=== PATIENT | male | born 1955 | race Caucasian/White ===

== ENCOUNTER 2019-08-06 14:02 | Inpatient (IN) ==
[2019-08-06 14:53] LABS: BASO# 0.01 X1000 (0.0-0.2); BASO% 0.1 % (0.0-0.8); EOS# 0.06 X1000 (0.0-0.7); EOS% 0.4 % (0.0-10.0); HEMATOCRIT 32.9 % (42.0-52.0); HEMOGLOBIN 11.9 g/dL (14.0-18.0); IMM GRAN# 0.08 X1000 (0.0-0.04); IMM GRAN% 0.5 % (0.0-0.5); LYMPH# 1.21 X1000 (1.2-3.4); LYMPH% 8.3 % (20.5-51.1); MCH 31.6 PG (27-31); MCHC 36.2 g/dL (33-37); MCV 87.3 FL (81-99); MONO# 0.67 X1000 (0.11-0.59); MONO% 4.6 % (1.7-9.3); MPV 9.6 FL (7.4-10.4); NEUT# 12.56 X1000 (1.4-6.5); NEUT% 86.1 % (42.2-75.2); PLT 248 X1000 (130-400); RBC 3.77 XMIL (4.7-6.1); RDW 13.4 % (11.5-14.5); WBC 14.59 X1000 (4.8-10.8)
[2019-08-06 15:08] LABS: AGAP 11; ALKALINE PHOSPHATASE 126 U/L (32-122); BUN 5 mg/dL (8-22); CALCIUM 7.9 mg/dL (8.8-10.2); CHLORIDE 90 mmol/L (98-107); COSMO 252; CREATININE 0.6 mg/dL (0.7-1.2); ESTIMATED GFR > 60; GLUCOSE 90 mg/dL (70-104); GOT 20 U/L (10-34); GPT 19 U/L (10-44); SODIUM 127 mmol/L (136-145); TCO2 26 mmol/L (25-35); TOTAL PROTEIN 6.3 g/dL (6.3-8.3)
[2019-08-06] MEDS ORDERED: NS 1,000 ML IV ONE (15:22)
[2019-08-06] MEDS ORDERED: KLOR-CON PO ONE (15:24)
[2019-08-06] MEDS ORDERED: ROCEPHIN 1 GM in NS 50 ML IV ONE (16:58)
[2019-08-06] MEDS ORDERED: DILAUDID IV ONE (18:07)
[2019-08-06] MEDS ORDERED: ZOFRAN IV ONE (18:07)
--- NOTE | 2019-08-06 18:12 | Extremity Venous Study ---
EXAM: Venous U/S Right Arm - 08/06/2019 HISTORY: edema TECHNIQUE: Right upper extremity Doppler venous ultrasound COMPARISON: None. FINDINGS: The deep veins of the right upper extremity demonstrate flow, with compressibility and augmentation. There are no filling defects identified. There is apparent subcutaneous edema noted. IMPRESSION: No evidence of right upper extremity deep venous thrombosis. Electronically signed by Eduar Salazar 08/06/2019 6:10 PM
--- NOTE | 2019-08-06 18:17 | PROVIDER DOCUMENTATION ---
This chart was entered by Sayra Parra Scribe, acting as scribe for Chuck Antoine MD. HPI-General Adult - General Chief Complaint: Edema Stated Complaint: ELBOW / LEG SWOLLEN / PAINFUL Time Seen by Provider: 08/06/19 14:17 Source: patient Allergies/Adverse Reactions: Patient Allergies Allergy/AdvReac Type Severity Reaction Status Date / Time No Known Allergies Allergy Verified 07/28/17 17:54 Home Medications: Home Medication List Medication Instructions Recorded Confirmed Last Taken Type Amlodipine Besylate 10 mg PO DAILY 07/28/17 01/29/18 Unknown History Clonidine HCl 0.1 mg PO DAILY 07/28/17 01/29/18 Unknown History Hydrocodone/Acetaminophen [[place] 1 each PO Q4-6H PRN PRN 07/28/17 01/29/18 01/28/18 21:00 History 10-325 Tablet] Indomethacin 25 mg PO DAILY 07/28/17 01/29/18 Unknown History Alprazolam [Xanax] 1 mg PO BID PRN PRN tablet 01/29/18 Unknown Rx Cyclobenzaprine [Flexeril] 10 mg PO QHS tablet 01/29/18 Unknown Rx - History of Present Illness -Gen Adult Nature of Presenting Problems: 64 y/o WM c/o swelling and pain to rt arm since yesterday. Pt denies any falls or injuries. Location of Pain/Injury: reports: upper extremity ( cellulitis and edema to rt arm) Pain Radiation: reports: no radiation Quality of Pain: reports: aching, burning, pressure Severity: reports: severe Onset/Duration: reports: 24 hours ago Timing: reports: still present, getting worse Context/Activities at Onset: reports: light activity Modifying Factors: improves with: movement, palpation Associated Symptoms: reports: denies symptoms Similar Symptoms Previously?: No Recently seen or treated by another doctor?: No - Sickle Cell Pain Related Context Sickle Cell Pain Location: denies: none, head, face, mouth, neck, chest, upper extremity, hand(s), abdomen, back, pelvis, genitalia, lower extremity, feet, upper body, lower body, generalized, other Review of Systems - Adult - REVIEW OF SYSTEMS - ADULT Constitutional: reports: no symptoms reported, see HPI Eyes: reports: no symptoms reported, see HPI Ears, Nose, Mouth & Throat: reports: no symptoms reported, see HPI Cardiovascular: reports: no symptoms reported, see HPI Respiratory: reports: no symptoms reported, see HPI Gastrointestinal: reports: no symptoms reported, see HPI Genitourinary: reports: no symptoms reported, see HPI Musculoskeletal: reports: no symptoms reported, see HPI Integumentary: reports: see HPI, other (redness and swelling to rt arm) Neurological: reports: no symptoms reported, see HPI Psychiatric: reports: no symptoms reported, see HPI Endocrine: reports: no symptoms reported, see HPI Hematologic/Lymphatic: reports: no symptoms reported, see HPI Allergic/Immunologic: reports: no symptoms reported, see HPI All Other Systems: Reviewed and Negative Past History - Adult - PAST MEDICAL HISTORY-ADULT Review of Records: reports: Old Records Reviewed, Nursing Assessment Review, Medications Reviewed, Social history reviewed & non-contributory. Major Childhood Illnesses: reports: denies history Cardiovascular: reports: HTN Respiratory: reports: COPD Gastrointestinal: reports: denies history Genitourinary: reports: denies history Musculoskeletal: reports: chronic pain (chronic low back pain), neck/back injury , other (DDD) Neurological: reports: denies history Psychiatric: reports: anxiety, other (panic attacks) Endocrine/Immune: reports: denies history Other Conditions: reports: MRSA - PRIOR SURGERIES/PROCEDURES Surgical/Procedure History: reports: hernia repair - IMMUNIZATION STATUS Childhood Immunizations: See Nurse Assessment Flu Vaccine: See Nurse Assessment - FAMILY HISTORY Family History: reviewed, not pertinent - SOCIAL HISTORY Smoking: cigarettes, less than 1 pack/day Provider spent 3-5 mins advising pt. on dangers of tobacco.: Discussed manners to quit use, and f/u contacts for add'l counseling. Substance Use: denies Alcohol Use Frequency: never Living Situation: family Physical Exam-General - PHYSICAL EXAM-ADULT Initial Vital Signs Reviewed: Yes - CONSTITUTIONAL General Appearance: alert, mild distress - EYES Eyes: PERRL/EOMI, pink conjunctivae - HEAD, EARS, NOSE, MOUTH & THROAT HENMT: moist mucous membranes - NECK Neck: non-tender, full range of motion, supple, normal inspection - RESPIRATORY Respiratory: chest non-tender, lungs clear, normal breath sounds - CARDIOVASCULAR Cardiovascular: normal peripheral pulses, regular rate, rhythm - CHEST (BREASTS) Chest/Breast: deferred - GASTROINTESTINAL (ABDOMEN) Abdominal Exam: normal bowel sounds, non tender, soft - GENITOURINARY Male Genitalia: deferred Rectal Exam: deferred Hemoccult Exam: deferred - LYMPHATIC Lymphatic: no adenopathy - MUSCULOSKELETAL Back Exam: normal inspection, no CVA tenderness, no vertebral tenderness Extremity: normal capillary refill, pelvis stable, erythema (RUE), swelling (RUE and RLE), tenderness (RUE) - SKIN Integumentary: normal color, normal turgor, warm/dry, erythema (RUE), swelling (RUE and RLE), tenderness (RUE) - NEUROLOGIC Neurologic: grossly normal - PSYCHIATRIC Psych/Mental Status: normal mood/affect, normal thought content, normal thought process, oriented x 3 Progress - PLAN OF CARE/RESULTS Progress/Plan/Lab Results: Vital Signs - 8 hr 08/06/19 14:07 Temperature 98.2 F Pulse Rate 98 H Respiratory Rate 20 Blood Pressure 126/76 O2 Sat by Pulse Oximetry 100 Orders Category Date Time Status CBC WITH ELECTRONIC DIFF [HEME] Stat Lab 08/06/19 14:20 Uncollected COMPREHENSIVE METABOLIC PANEL [CHEM] Stat Lab 08/06/19 14:20 Uncollected D-DIMER [COAG] Stat Lab 08/06/19 14:21 Ordered URIC ACID [CHEM] Stat Lab 08/06/19 14:20 Ordered Result Diagrams: 08/06/19 14:28 08/06/19 14:28 - REASSESSMENT Reassessment #1 Time Reassessed: 16:12 (pt has calmed and is resting in bed) Status: improving Reassessment #2 Time Reassessed: 17:57 Status: unchanged - CONSULTS/PCP/HOSPITALIST Notification #1 *Consult/PCP/Hospitalist*: hospiatlist dr keller Time Discussed: 17:57 Consult Disposition: Admit Departure - Departure Date of Disposition Decision: 08/06/19 Time of Disposition Decision: 18:09 DIAGNOSIS: Tobacco use disorder, Hyponatremia, Hypokalemia Cellulitis Qualifiers: Site of cellulitis: extremity Site of cellulitis of extremity: upper extremity Laterality: right Qualified Code(s): L03.113 - Cellulitis of right upper limb Disposition: ADMITTED INPATIENT 09 Certified Medical Emergency: Emergent Condition: Fair Referrals and Follow-Ups: Fabio Harden MD [Primary Care Provider] - - Critical Care Note This patient required my direct & personal management of CC.: Yes Total Time (mins): 32 Critical Care Statement: This patient required my direct personal management to treat or rule out processes, the absence of which, could potentiallly result in sudden, clinically significant life or limb threatening deterioration. Attestation - Physician/ ROSEY Attestation Patient care was provided by Advanced Practice Provider:: No The physician spent face to face time with patient:: Yes Advanced Practice Provider documentation review:: Supervising physician onsite and consulted in the evaluation and care of this patient. The physician did have a face to face encounter with the patient. This chart was documented by the indicated scribe, (Sayra Parra Scribe) and accurately reflects the services I performed and decisions made by me, Chuck Antoine MD, as attested by the provider's signature.
[2019-08-06] MEDS ORDERED: ZOFRAN IV PRN (18:31)
[2019-08-06] MEDS ORDERED: TYLENOL PO PRN (18:31)
[2019-08-06] MEDS ORDERED: NS 1,000 ML IV SCH (18:45)
[2019-08-06 19:16] LABS: BILIRUBIN URINE NEGATIVE (NEGATIVE); BLOOD URINE NEGATIVE (NEGATIVE); CLARITY CLEAR (CLEAR); COLOR YELLOW; GLUCOSE URINE NEGATIVE (NEGATIVE); KETONE URINE NEGATIVE (NEGATIVE); LEUKOCYTES URINE NEGATIVE (NEGATIVE); NITRITE URINE NEGATIVE (NEGATIVE); PROTEIN URINE NEGATIVE (NEGATIVE); SP GRAVITY URINE 1.005; UROBILINOGEN URINE 4 mg/dL
[2019-08-06 19:22] LABS: URINE BACTERIA NEGATIVE /HFP; URINE EPITHELIAL CELLS <10 /HPF (<10); URINE RBC <10 /HPF (<10); URINE SOURCE CLEAN CATCH; URINE WBC <10 /HPF (<10)
[2019-08-06] MEDS: ROCEPHIN 1 GM in NS 50 ML IV SCH (20:53)
[2019-08-06] MEDS: DIFLUCAN PO SCH (21:27)
[2019-08-06] MEDS: NORCO-10 PO PRN (23:26)
--- NOTE | 2019-08-07 04:43 | HISTORY AND PHYSICAL ---
CHIEF COMPLAINT: Right arm pain and swelling. HISTORY OF PRESENT ILLNESS: The patient is a 64-year-old male who presented to the emergency department complaining that his right arm started swelling yesterday and has continued to worsen. Today, it hurts, it is red, tender to palpation. Denies any injury. Denies any previous skin infections. Does have a yeast infection on his right foot. ALLERGIES: No known drug allergies. MEDICATIONS: Amlodipine, hydrocodone, Xanax, Flexeril, although do not have a complete accurate list. PAST MEDICAL HISTORY: Hypertension, COPD, chronic back and neck pain, chronic panic attacks, history of MRSA. REVIEW OF SYSTEMS: As noted above. Patient denies any fevers, chills, cough, congestion. Denies headaches, blurred vision, change in vision. Denies any focalized numbness, tingling, and weakness in his extremities. Denies dysuria, frequency. Notes that his right arm has been swollen, tender, and red. Denies any history of gout or injury to the arm. FAMILY HISTORY: Noncontributory. SOCIAL HISTORY: Patient smokes a pack a day. Denies alcohol. Denies any illicit substance use. PHYSICAL EXAMINATION: VITAL SIGNS: Reviewed. Temperature 98 degrees, pulse 98, respiratory 20, BP 126/76. Saturating 100% on room air. GENERAL: Patient is awake, alert. He is in no respiratory distress. HEENT: Normocephalic. NECK: Supple. CARDIOVASCULAR: Regular rate. No murmurs. CHEST: Clear, nonlabored. ABDOMEN: Soft, nondistended, nontender. EXTREMITIES: Moves all extremities. NEUROLOGIC: No focal neurological changes. He is awake, alert, oriented x3. SKIN: His right arm is red, swollen, tender. It is edematous from his dorsum of his hand to his elbow. LABS: White count 14.9. Sodium 127, potassium 3.0. ASSESSMENT: 1. Cellulitis right upper extremity. 2. Hypokalemia. 3. Hyponatremia. 4. Chronic tobacco abuse. 5. Leukocytosis. PLAN: We will admit patient to the hospital, antibiotics, pain control. We will follow his sodium and potassium. He has been given potassium in the ER. Further orders as needed. cc: Chuck Raya MD
[2019-08-07 06:41] LABS: HEMATOCRIT 30.3 % (42.0-52.0); HEMOGLOBIN 10.3 g/dL (14.0-18.0); MCH 30.4 PG (27-31); MCV 89.4 FL (81-99); MPV 9.4 FL (7.4-10.4); RBC 3.39 XMIL (4.7-6.1); RDW 13.7 % (11.5-14.5); WBC 10.24 X1000 (4.8-10.8)
[2019-08-07 06:52] LABS: AGAP 9; ALBUMIN 2.7 g/dL (3.5-5.0); ALKALINE PHOSPHATASE 131 U/L (32-122); BUN 5 mg/dL (8-22); CHLORIDE 99 mmol/L (98-107); COSMO 267; CREATININE 0.6 mg/dL (0.7-1.2); ESTIMATED GFR > 60; GLUCOSE 90 mg/dL (70-104); GOT 16 U/L (10-34); GPT 17 U/L (10-44); MAGNESIUM 1.8 mg/dL (1.5-2.7); SODIUM 135 mmol/L (136-145); TCO2 27 mmol/L (25-35); TOTAL PROTEIN 6.1 g/dL (6.3-8.3)
[2019-08-07] MEDS ORDERED: ZOFRAN IV PRN (07:37)
[2019-08-07] MEDS ORDERED: TYLENOL PO PRN (07:37)
[2019-08-07] MEDS ORDERED: LOVENOX SUBQ ONE (07:38)
[2019-08-07] MEDS ORDERED: VANCOMYCIN IV PER PHARMACY MISC SCH (07:45)
[2019-08-07] MEDS: NORCO-10 PO PRN ×2 (08:49→15:14)
[2019-08-07] MEDS: DIFLUCAN PO SCH (08:51)
[2019-08-07] MEDS ORDERED: VANCOMYCIN 2,150 MG in NS 500 ML IV ONE (09:00)
--- NOTE | 2019-08-07 09:52 | Diag Imaging Result Doc PS360 ---
CT ANGIOGRM PULMONARY ARTERIES - 08/07/2019 INDICATION: d dimer TECHNIQUE: Axial CT images were obtained after administering intravenous contrast. Coronal MIP images were generated. COMPARISON: None FINDINGS: There is no pulmonary embolism. There is significant plaque buildup leading to circumferential narrowing of the proximal origins of the left common carotid and left subclavian arteries. This leads to moderately severe stenosis of about 50% narrowing of both of these arteries. There is no adenopathy. Heart size is normal with no pericardial effusion. Upper abdominal images are normal. Bony structures are intact. Moderate degeneration throughout the thoracic spine. IMPRESSION: No acute abnormality. Narrowing of the origins of the left common carotid and subclavian arteries. Please note that this can give rise to subclavian steal syndrome. This exam was performed using automated exposure control, adjustment of mA or kV according to patient size, and/or use of iterative reconstruction technique Electronically signed by Mike Anglni 08/07/2019 9:50 AM
--- NOTE | 2019-08-07 11:13 | Extremity Venous Study ---
Venous U/S Bilateral Legs - 08/07/2019 INDICATION: d dimer TECHNIQUE: COMPARISON: None FINDINGS: The veins of the lower extremities are fully compressible. There is normal color and pulse wave Doppler signal. There is mild inguinal lymphadenopathy bilaterally. IMPRESSION: Negative for venous thrombosis. Mild groin lymphadenopathy bilaterally, nonspecific. Electronically signed by Mike Anglin 08/07/2019 11:11 AM
[2019-08-07] MEDS: ROCEPHIN 1 GM in NS 50 ML IV SCH (19:29)
[2019-08-07] MEDS: VANCOMYCIN 1,850 MG in NS 500 ML IV SCH (20:45)
--- NOTE | 2019-08-08 00:48 | PROGRESS NOTE ---
DATE: 08/07/2019 SUBJECTIVE: The patient notes that his arm is still red, swollen and tender. He does not think it looks any worse, but it might not be better, either. Denies any fevers or chills. OBJECTIVE: Temperature 97.8 degrees, pulse 71, respiratory 18, BP 103/53.General: The patient is awake. He is pleasant. He is in no distress. HEENT: Normocephalic. Neck supple. Cardiovascular: Regular rate. Chest clear, nonlabored. Abdomen soft, nondistended, nontender. Extremities: Moves all extremities. Skin: His right upper extremity is still erythematous and swollen from the dorsum of his hand to his elbow. He does have full motion and good sensation of all 5 digits. ASSESSMENT: 1. Cellulitis, right upper extremity. 2. Hypokalemia. 3. Hypomagnesemia. 4. Chronic tobacco abuse. PLAN: We are going to continue the patient in the hospital. Antibiotics. We will check ultrasound and we will follow. cc: Chuck Raya MD
[2019-08-08] MEDS ORDERED: SOLU-MEDROL IV ONE (09:34)
[2019-08-08] MEDS: DIFLUCAN PO SCH (09:47)
[2019-08-08] MEDS: VANCOMYCIN 1,850 MG in NS 500 ML IV SCH ×2 (09:48→21:11)
[2019-08-08] MEDS: NICODERM PATCH TD SCH (10:17)
[2019-08-08 10:32] LABS: AGAP 10; BUN 3 mg/dL (8-22); CALCIUM 7.9 mg/dL (8.8-10.2); CHLORIDE 97 mmol/L (98-107); COSMO 265; CREATININE 0.6 mg/dL (0.7-1.2); ESTIMATED GFR > 60; GLUCOSE 102 mg/dL (70-104); POTASSIUM 3.4 mmol/L (3.5-5.1); SODIUM 134 mmol/L (136-145); TCO2 27 mmol/L (25-35)
[2019-08-08] MEDS: NORCO-10 PO PRN ×2 (10:59→18:33)
[2019-08-08] MEDS ORDERED: KLOR-CON PO ONE (13:32)
--- NOTE | 2019-08-08 13:48 | PROGRESS NOTE ---
DATE: 08/08/2019 SUBJECTIVE: The patient complains of having some pain in the right upper extremity, but states that he has slept better last night and the pain was a lot better as compared to the previous days. OBJECTIVE: Vital Signs: Temperature 97.4 degrees, pulse 88 per minute, respiratory rate 12 per minute, blood pressure 120/62, pulse oximetry 100% on room air. General: Patient is alert and oriented x3. He does not appear to be in any acute distress. Cardiovascular System: First and second heart sounds are audible without murmurs or gallops. Respiratory System: No respiratory distress noted. Bilateral lung air entry is good without any rales or rhonchi. Gastrointestinal: Abdomen is soft and nondistended. Normal bowel sounds are present. Musculoskeletal System: Right upper extremity is significantly edematous and erythematous around the elbow area. Right forearm is also having erythema and edema along with tenderness, but the patient states that it is somewhat better as compared to previous days. DIAGNOSTIC DATA: No new labs have been done. His potassium levels were found to be 2.0 yesterday, however. ASSESSMENT: 1. Right upper extremity cellulitis. 2. Hypokalemia. PLAN: I am going to have a stat BMP to recheck his potassium levels today and replenish potassium as needed. He has been on broad-spectrum antibiotics including vancomycin and ceftriaxone, which will be continued. I am going to give him a single dose of methylprednisolone 80 mg IV as well to reduce the edema and increase comfort level. Further recommendation will be given as per hospital course. cc: Nabeel Cohn MD
[2019-08-08] MEDS: NS 1,000 ML IV SCH (14:46)
[2019-08-08] MEDS: ROCEPHIN 1 GM in NS 50 ML IV SCH (18:22)
[2019-08-09] MEDS: NORCO-10 PO PRN ×4 (00:24→20:50)
[2019-08-09 08:08] LABS: BASO# 0.02 X1000 (0.0-0.2); BASO% 0.1 % (0.0-0.8); EOS# 0.01 X1000 (0.0-0.7); HEMATOCRIT 31.1 % (42.0-52.0); HEMOGLOBIN 10.9 g/dL (14.0-18.0); IMM GRAN# 0.19 X1000 (0.0-0.04); IMM GRAN% 0.9 % (0.0-0.5); LYMPH# 1.35 X1000 (1.2-3.4); LYMPH% 6.3 % (20.5-51.1); MCH 31.2 PG (27-31); MCV 89.1 FL (81-99); MONO# 0.76 X1000 (0.11-0.59); MONO% 3.5 % (1.7-9.3); MPV 8.5 FL (7.4-10.4); NEUT# 19.12 X1000 (1.4-6.5); NEUT% 89.2 % (42.2-75.2); PLT 440 X1000 (130-400); RBC 3.49 XMIL (4.7-6.1); RDW 13.5 % (11.5-14.5); WBC 21.45 X1000 (4.8-10.8)
[2019-08-09 09:18] LABS: AGAP 16; BUN 4 mg/dL (8-22); CHLORIDE 97 mmol/L (98-107); COSMO 271; CREATININE 0.5 mg/dL (0.7-1.2); ESTIMATED GFR > 60; GLUCOSE 129 mg/dL (70-104); POTASSIUM 3.8 mmol/L (3.5-5.1); SODIUM 136 mmol/L (136-145); TCO2 23 mmol/L (25-35)
[2019-08-09] MEDS: DIFLUCAN PO SCH (09:42)
[2019-08-09] MEDS: VANCOMYCIN 1,850 MG in NS 500 ML IV SCH ×2 (09:42→20:51)
[2019-08-09] MEDS: NICODERM PATCH TD SCH (09:43)
[2019-08-09 09:44] LABS: ANISOCYTOSIS 1+; BANDS 1 % (0-1); LYMPHS 7 % (21-51); MONO 3 % (1-9); SEGS 89 % (42-75)
[2019-08-09] MEDS: NS 1,000 ML IV SCH (09:58)
--- NOTE | 2019-08-09 12:25 | PROGRESS NOTE ---
DATE: 08/09/2019 SUBJECTIVE: The patient denies having acute complaint this morning and feels much better as compared to yesterday. He states that the swelling and redness of his right palm has significantly improved. OBJECTIVE: Vital Signs: Temperature 98.3 degrees, pulse 85 per minute, respiratory rate 14 per minute, blood pressure 134/74, pulse oximetry 100% on room air. General: The patient is alert and oriented x3. He does not appear to be in any acute distress. Cardiovascular System: First and second heart sounds are audible without any murmur or gallops. Respiratory System: Bilateral lung air entry is good without any rales or rhonchi. Gastrointestinal System: Abdomen is soft and nondistended. Normal bowel sounds are present. Musculoskeletal System: Right upper extremity erythema along with skin induration and increased warmth are there, although they are significantly improved as compared to yesterday. The patient also reports improvement. Diagnostic Data: CBC shows WBC count of 21.45 with 89.2% neutrophils. In comparison, his WBC count was 10.24 yesterday. Basic metabolic panel is nondiagnostic. IMPRESSION: 1. Right upper extremity cellulitis with leukocytosis which could be secondary to methylprednisolone that was given to him yesterday. 2. Hypokalemia, that has improved. PLAN: We will continue to give him vancomycin along with ceftriaxone intravenously. We are also going to continue giving him IV fluid and monitor him clinically. Although his white blood cell count has increased, he is clinically feeling better and his right upper extremity swelling, erythema, and tenderness are down. Therefore, we are going to continue with the current therapy. I am going to repeat his labs in the morning tomorrow to monitor him. Further recommendations will be given as per outcome of these measures. cc: Nabeel Cohn MD
[2019-08-09] MEDS: ROCEPHIN 1 GM in NS 50 ML IV SCH (17:44)
[2019-08-10] MEDS: NORCO-10 PO PRN ×4 (02:37→22:12)
[2019-08-10] MEDS: NS 1,000 ML IV SCH ×2 (06:00→20:47)
[2019-08-10 07:20] LABS: BASO# 0.03 X1000 (0.0-0.2); BASO% 0.2 % (0.0-0.8); EOS# 0.11 X1000 (0.0-0.7); EOS% 0.8 % (0.0-10.0); HEMATOCRIT 33.9 % (42.0-52.0); HEMOGLOBIN 11.6 g/dL (14.0-18.0); IMM GRAN# 0.22 X1000 (0.0-0.04); IMM GRAN% 1.5 % (0.0-0.5); LYMPH# 1.84 X1000 (1.2-3.4); LYMPH% 12.9 % (20.5-51.1); MCH 30.9 PG (27-31); MCHC 34.2 g/dL (33-37); MCV 90.2 FL (81-99); MONO# 0.73 X1000 (0.11-0.59); MONO% 5.1 % (1.7-9.3); MPV 8.4 FL (7.4-10.4); NEUT# 11.35 X1000 (1.4-6.5); NEUT% 79.5 % (42.2-75.2); PLT 577 X1000 (130-400); RBC 3.76 XMIL (4.7-6.1); RDW 13.9 % (11.5-14.5); WBC 14.28 X1000 (4.8-10.8)
[2019-08-10 07:29] LABS: AGAP 12; BUN 4 mg/dL (8-22); CALCIUM 8.3 mg/dL (8.8-10.2); CHLORIDE 102 mmol/L (98-107); COSMO 275; CREATININE 0.6 mg/dL (0.7-1.2); ESTIMATED GFR > 60; GLUCOSE 102 mg/dL (70-104); MAGNESIUM 1.8 mg/dL (1.5-2.7); POTASSIUM 3.4 mmol/L (3.5-5.1); SODIUM 139 mmol/L (136-145); TCO2 25 mmol/L (25-35)
[2019-08-10] MEDS: VANCOMYCIN 1,850 MG in NS 500 ML IV SCH ×2 (09:01→20:47)
[2019-08-10] MEDS: NORVASC PO SCH (09:19)
[2019-08-10] MEDS: NICODERM PATCH TD SCH (09:20)
[2019-08-10] MEDS: DIFLUCAN PO SCH (09:20)
[2019-08-10] MEDS: ROCEPHIN 1 GM in NS 50 ML IV SCH (17:46)
[2019-08-11] MEDS: NORCO-10 PO PRN ×4 (04:12→22:29)
--- NOTE | 2019-08-11 08:04 | PROGRESS NOTE ---
DATE: 08/10/2019 SUBJECTIVE: Patient notes that overall he is feeling better. Still notes he is having some pain and swelling in his right upper extremity, but notes this is better than it was. PHYSICAL EXAM: Vital signs: Temperature 97.7 degrees, pulse 94, BP 171/62. General: Patient is awake. He is very pleasant. He is in no distress. HEENT: Normocephalic. Neck: Supple. Cardiovascular: Regular rate. Chest: Clear. Abdomen: Soft. Extremities: Moves all extremities. Skin: Right upper extremity has marked improvement in his swelling and warmth since admission. ASSESSMENT: 1. Right upper extremity cellulitis. 2. Leukocytosis. 3. Left lower extremity swelling of undetermined origin. 4. Hypokalemia. PLAN: Continue antibiotics. The patient did have an ultrasound of the lower extremities that was negative, but he has had significant swelling since that ultrasound. Certainly may need to consider repeating this. We will continue antibiotics, hopefully home over the next 1 or 2 days. cc: Chuck Raya MD
[2019-08-11] MEDS: NICODERM PATCH TD SCH (10:12)
[2019-08-11] MEDS: NORVASC PO SCH (10:12)
[2019-08-11] MEDS: DIFLUCAN PO SCH (10:12)
[2019-08-11] MEDS: VANCOMYCIN 1,850 MG in NS 500 ML IV SCH ×2 (10:13→21:16)
[2019-08-11] MEDS: NS 1,000 ML IV SCH ×2 (10:17→16:19)
--- NOTE | 2019-08-11 18:26 | PROGRESS NOTE ---
DATE: 08/11/2019 SUBJECTIVE: The patient is complaining of an altered sensation on left side of his face. Very odd affect. OBJECTIVE: Vital signs: Blood pressure 147/79, heart rate of 97, respiratory rate of 18, temp was 98.1 degrees. Cardiovascular: Regular rate and rhythm. Pulmonary: Bilateral breath sounds. Clear to auscultation. GI: Soft, nontender, nondistended. Bowel sounds are positive. Extremities: His right upper extremity is extremely swollen. He has peripheral edema that is pretty impressive and unexplained. He is on amlodipine. As far as I can tell he does not have congestive heart failure. Neurologic: Very odd affect. PROBLEM LIST: Cellulitis. We will continue empiric antibiotics. He is currently on vancomycin and Rocephin. He has had 1 culture positive for bacillus species that was not otherwise characterized. We will continue diuretics and follow. I am not really sure why he has such significant swelling unless it is possibly calcium channel gold. He has had no PE. We will get a wound care evaluation as well, start diuretics. cc: Chirag Colby MD
[2019-08-11] MEDS: ZOSYN 3.375 GM in NS 50 ML IV SCH (18:42)
[2019-08-11] MEDS: LASIX IV SCH (18:43)
[2019-08-11 21:57] LABS: UR AMPHETAMINES QUAL NONE DETECTED (NONE DETECT); UR BARBITUATES QUAL NONE DETECTED (NONE DETECT); UR BENZODIAZEPIN QUAL NONE DETECTED (NONE DETECT); UR CANNABINOIDS QUAL NONE DETECTED (NONE DETECT); UR COCAINE QUAL NONE DETECTED (NONE DETECT); UR METHADONE QUAL NONE DETECTED (NONE DETECT); UR METHAMPHETAMINE QUAL NONE DETECTED (NONE DETECT); UR OPIATES QUAL PRESUMPTIVE POSITIVE (NONE DETECT); UR OXYCODONE QUAL NONE DETECTED (NONE DETECT); UR PCP QUAL NONE DETECTED (NONE DETECT); UR PROPOXYPHENE QUAL NONE DETECTED (NONE DETECT); UR TCA QUAL NONE DETECTED (NONE DETECT)
[2019-08-12] MEDS: NORCO-10 PO PRN ×3 (02:41→12:16)
[2019-08-12] MEDS: ZOSYN 3.375 GM in NS 50 ML IV SCH ×4 (03:16→21:56)
[2019-08-12 07:37] LABS: BASO# 0.03 X1000 (0.0-0.2); BASO% 0.2 % (0.0-0.8); EOS# 0.07 X1000 (0.0-0.7); EOS% 0.5 % (0.0-10.0); HEMATOCRIT 30.9 % (42.0-52.0); HEMOGLOBIN 10.3 g/dL (14.0-18.0); IMM GRAN# 0.15 X1000 (0.0-0.04); LYMPH# 1.81 X1000 (1.2-3.4); LYMPH% 12.1 % (20.5-51.1); MCH 30.5 PG (27-31); MCHC 33.3 g/dL (33-37); MCV 91.4 FL (81-99); MONO# 0.69 X1000 (0.11-0.59); MONO% 4.6 % (1.7-9.3); MPV 8.2 FL (7.4-10.4); NEUT# 12.23 X1000 (1.4-6.5); NEUT% 81.6 % (42.2-75.2); PLT 656 X1000 (130-400); RBC 3.38 XMIL (4.7-6.1); RDW 13.9 % (11.5-14.5); WBC 14.98 X1000 (4.8-10.8)
[2019-08-12 08:05] LABS: AGAP 13; BUN 7 mg/dL (8-22); CALCIUM 8.1 mg/dL (8.8-10.2); CHLORIDE 99 mmol/L (98-107); COSMO 272; CREATININE 0.8 mg/dL (0.7-1.2); ESTIMATED GFR > 60; GLUCOSE 98 mg/dL (70-104); POTASSIUM 3.8 mmol/L (3.5-5.1); SODIUM 137 mmol/L (136-145); TCO2 25 mmol/L (25-35)
[2019-08-12] MEDS: DIFLUCAN PO SCH (08:21)
[2019-08-12] MEDS: NICODERM PATCH TD SCH (08:21)
[2019-08-12] MEDS: LASIX IV SCH (08:21)
--- NOTE | 2019-08-12 18:56 | PROGRESS NOTE ---
DATE: 08/12/2019 SUBJECTIVE: He still has pain and swelling in his extremity, which just seems whatever is going on is still not resolving unfortunately or maybe it is organizing into subcutaneous abscess. OBJECTIVE: Vital signs: Blood pressure is 139/65, heart rate 77, respiratory rate 18, temperature 97.9 degrees, 98% on room air. Cardiovascular: Regular rate and rhythm. Pulmonary: Bilateral breath sounds clear to auscultation. Gastrointestinal: Soft, nontender, nondistended. Bowel sounds are positive. Extremities: He has tight pitting edema with fluctuance over his elbow, almost possible effusion on the right side. He has a focal area about 3 cm circular with some mild fluctuance in his right lower extremity with associated very significant edema and erythema. PROBLEM LIST: Cellulitis of his right arm and right leg. He denies IV drug use. He has diffuse kind of excoriations so there may be just kind of a psychogenic component to pruritus. He is on vancomycin and Rocephin. His vancomycin is greater than 25. I am just going to stop and switch him to daptomycin. He is not on Rocephin. He is on Zosyn now and not much improved. I am going to CT his arm, rule out abscess or septic arthritis. I am going to get a surgical opinion because I am not entirely sure he may not need some drainage on the actual lower extremity lesion, and we will continue wound care, fluid management, IV fluids and follow closely. cc: Chirag Colby MD
[2019-08-12] MEDS: PERCOCET-10 PO PRN (20:28)
--- NOTE | 2019-08-12 21:58 | Diag Imaging Result Doc PS360 ---
EXAM: CT EXT UPPER RIGHT W/CONT 08/12/2019 HISTORY: cellulitis, r/ro abscess TECHNIQUE: CT of the right arm COMMENT: With intravenous contrast there is some edema in the subcutaneous fat in the anterolateral upper arm and circumferentially at the level of the elbow. This is primarily located posteriorly in the forearm with skin thickening but no discrete abscess. The subcutaneous edema and inflammation extend into the dorsum of the hand. No evidence of acute bony abnormality is demonstrated. IMPRESSION: Superficial cellulitis particularly in the posterior forearm. Electronically signed by bD Allen 08/12/2019 9:55 PM
[2019-08-13] MEDS: PERCOCET-10 PO PRN ×5 (00:45→21:15)
[2019-08-13] MEDS: ZOSYN 3.375 GM in NS 50 ML IV SCH ×5 (04:17→21:17)
[2019-08-13 07:20] LABS: BASO# 0.04 X1000 (0.0-0.2); BASO% 0.3 % (0.0-0.8); EOS# 0.16 X1000 (0.0-0.7); EOS% 1.1 % (0.0-10.0); HEMATOCRIT 31.3 % (42.0-52.0); HEMOGLOBIN 10.4 g/dL (14.0-18.0); IMM GRAN# 0.14 X1000 (0.0-0.04); IMM GRAN% 0.9 % (0.0-0.5); LYMPH# 1.82 X1000 (1.2-3.4); LYMPH% 12.2 % (20.5-51.1); MCH 30.5 PG (27-31); MCHC 33.2 g/dL (33-37); MCV 91.8 FL (81-99); MONO# 0.71 X1000 (0.11-0.59); MONO% 4.8 % (1.7-9.3); NEUT# 12.05 X1000 (1.4-6.5); NEUT% 80.7 % (42.2-75.2); PLT 675 X1000 (130-400); RBC 3.41 XMIL (4.7-6.1); RDW 14.2 % (11.5-14.5); WBC 14.92 X1000 (4.8-10.8)
[2019-08-13 07:38] LABS: AGAP 12; BUN 7 mg/dL (8-22); CALCIUM 8.1 mg/dL (8.8-10.2); CHLORIDE 97 mmol/L (98-107); COSMO 265; CREATININE 0.8 mg/dL (0.7-1.2); ESTIMATED GFR > 60; GLUCOSE 109 mg/dL (70-104); POTASSIUM 3.6 mmol/L (3.5-5.1); SODIUM 133 mmol/L (136-145); TCO2 24 mmol/L (25-35)
[2019-08-13] MEDS: CUBICIN 600 MG in NS 100 ML IV SCH (07:53)
[2019-08-13] MEDS: LASIX IV SCH (08:55)
[2019-08-13] MEDS: DIFLUCAN PO SCH (08:55)
[2019-08-13] MEDS: NICODERM PATCH TD SCH (08:55)
[2019-08-13] MEDS: FLEXERIL PO SCH (21:15)
[2019-08-13] MEDS: XANAX PO PRN (21:16)
[2019-08-14] MEDS: ZOSYN 3.375 GM in NS 50 ML IV SCH ×4 (03:39→21:24)
[2019-08-14] MEDS: PERCOCET-10 PO PRN ×4 (05:42→21:49)
[2019-08-14 06:36] LABS: BASO# 0.03 X1000 (0.0-0.2); BASO% 0.2 % (0.0-0.8); EOS# 0.19 X1000 (0.0-0.7); EOS% 1.6 % (0.0-10.0); HEMATOCRIT 30.6 % (42.0-52.0); HEMOGLOBIN 10.2 g/dL (14.0-18.0); IMM GRAN# 0.06 X1000 (0.0-0.04); IMM GRAN% 0.5 % (0.0-0.5); LYMPH# 1.96 X1000 (1.2-3.4); LYMPH% 16.3 % (20.5-51.1); MCH 30.7 PG (27-31); MCHC 33.3 g/dL (33-37); MCV 92.2 FL (81-99); MONO# 0.62 X1000 (0.11-0.59); MONO% 5.2 % (1.7-9.3); MPV 7.9 FL (7.4-10.4); NEUT# 9.17 X1000 (1.4-6.5); NEUT% 76.2 % (42.2-75.2); PLT 645 X1000 (130-400); RBC 3.32 XMIL (4.7-6.1); WBC 12.03 X1000 (4.8-10.8)
[2019-08-14 07:08] LABS: AGAP 12; BUN 6 mg/dL (8-22); CALCIUM 8.2 mg/dL (8.8-10.2); CHLORIDE 101 mmol/L (98-107); COSMO 275; CREATININE 0.8 mg/dL (0.7-1.2); ESTIMATED GFR > 60; GLUCOSE 103 mg/dL (70-104); POTASSIUM 3.3 mmol/L (3.5-5.1); SODIUM 139 mmol/L (136-145); TCO2 26 mmol/L (25-35)
[2019-08-14] MEDS: DIFLUCAN PO SCH (08:04)
[2019-08-14] MEDS: NICODERM PATCH TD SCH (08:04)
[2019-08-14] MEDS: LASIX IV SCH (08:05)
[2019-08-14] MEDS: CATAPRES PO SCH (08:05)
[2019-08-14] MEDS: CUBICIN 600 MG in NS 100 ML IV SCH (08:49)
--- NOTE | 2019-08-14 13:25 | Extremity Venous Study ---
EXAM: Venous U/S Right Leg HISTORY: swelling TECHNIQUE: Hurt scale, color Doppler, and duplex evaluation was performed. Standard protocol. COMPARISON: None. FINDINGS: The deep veins of the right lower extremity demonstrate appropriate compressibility and augmentation. No intraluminal thrombus is visualized. There is no evidence for DVT. The superficial veins appear patent. There is moderate subcutaneous edema. There is valvular reflux right common femoral and greater saphenous vein. IMPRESSION: No evidence for deep venous thrombosis right lower extremity. Reflux right common femoral and greater saphenous vein. Electronically signed by Yu Campbell 08/14/2019 1:22 PM
[2019-08-14] MEDS: XANAX PO PRN (16:44)
[2019-08-14] MEDS: FLEXERIL PO SCH (21:24)
--- NOTE | 2019-08-14 22:16 | PROGRESS NOTE ---
DATE: 08/14/2019 SUBJECTIVE: Patient has no major complaints. OBJECTIVE: Vital Signs: Blood pressure is 118/61, heart rate 81, respiratory rate 16, temperature 97.8 degrees, 99% on room air. Cardiovascular: Regular rate and rhythm. Pulmonary: Bilateral breath sounds. Clear to auscultation. GI: Soft, nontender, nondistended. Bowel sounds are positive. LABORATORY DATA: White count is 12, hemoglobin and hematocrit 10 and 30, platelets 645,000. Potassium 3.3. PROBLEM LIST: Cellulitis. We will continue treatment. He is on daptomycin and Rocephin and Zosyn, and he is improving finally. I think it is organizing. In his right leg, the erythema is pretty much gone, although it is still very swollen. In his right arm, he has some swelling over the arm, but no clear focal area to drain. On the leg, there may be a small area to drain potentially. I have asked Surgery to look at it about possible bedside incision and drainage, but we will await their recommendations. Continue antibiotics and diuretics and follow. Patient is really interested in going home because his family member apparently is ill, and he would like to go home soon if possible. cc: Chirag Colby MD
[2019-08-15] MEDS: PERCOCET-10 PO PRN ×2 (01:49→10:00)
[2019-08-15] MEDS: XANAX PO PRN ×2 (01:49→10:00)
[2019-08-15] MEDS: ZOSYN 3.375 GM in NS 50 ML IV SCH ×4 (04:12→22:30)
[2019-08-15 06:42] LABS: BASO# 0.03 X1000 (0.0-0.2); BASO% 0.3 % (0.0-0.8); EOS# 0.26 X1000 (0.0-0.7); EOS% 2.9 % (0.0-10.0); HEMATOCRIT 29.1 % (42.0-52.0); HEMOGLOBIN 9.5 g/dL (14.0-18.0); IMM GRAN# 0.04 X1000 (0.0-0.04); IMM GRAN% 0.4 % (0.0-0.5); LYMPH# 1.75 X1000 (1.2-3.4); LYMPH% 19.3 % (20.5-51.1); MCH 30.5 PG (27-31); MCHC 32.6 g/dL (33-37); MCV 93.6 FL (81-99); MONO# 0.58 X1000 (0.11-0.59); MONO% 6.4 % (1.7-9.3); MPV 7.8 FL (7.4-10.4); NEUT# 6.42 X1000 (1.4-6.5); NEUT% 70.7 % (42.2-75.2); PLT 633 X1000 (130-400); RBC 3.11 XMIL (4.7-6.1); RDW 13.9 % (11.5-14.5); WBC 9.08 X1000 (4.8-10.8)
[2019-08-15 07:23] LABS: AGAP 12; BUN 14 mg/dL (8-22); CALCIUM 8.1 mg/dL (8.8-10.2); CHLORIDE 100 mmol/L (98-107); COSMO 279; ESTIMATED GFR > 60; GLUCOSE 108 mg/dL (70-104); POTASSIUM 3.4 mmol/L (3.5-5.1); SODIUM 139 mmol/L (136-145); TCO2 28 mmol/L (25-35); URIC ACID 3.9 mg/dL (3.4-7.0)
[2019-08-15] MEDS: CATAPRES PO SCH (08:55)
[2019-08-15] MEDS: DIFLUCAN PO SCH (08:55)
[2019-08-15] MEDS: CUBICIN 600 MG in NS 100 ML IV SCH (08:55)
[2019-08-15] MEDS: LASIX IV SCH (08:56)
[2019-08-15] MEDS: NICODERM PATCH TD SCH (08:56)
[2019-08-15] MEDS ORDERED: XANAX PO PRN (12:33)
[2019-08-15] MEDS ORDERED: NORCO-7.5 PO PRN (12:34)
[2019-08-15] MEDS ORDERED: NARCAN IV ONE (13:28)
--- NOTE | 2019-08-15 13:50 | GENERAL SURGERY CONSULTATION ---
DATE: 08/15/2019 HISTORY OF PRESENT ILLNESS: Mr. Guillaume is a 64-year-old gentleman admitted on the with right arm pain and swelling. He has a history of MRSA infections. He denies any injury to his arm or leg. I have been asked to see him because of his arm swelling as well as a small area on the right leg that has become somewhat fluctuant. PAST MEDICAL HISTORY: Pertinent for hypertension, COPD, chronic back pain, chronic neck pain, panic attacks, and a history of MRSA. MEDICATIONS AT HOME: Include amlodipine, hydrocodone, Xanax, Flexeril. ALLERGIES: He has no known drug allergies. SOCIAL HISTORY: He smokes a pack per day. Denies alcohol and illicit drug use. FAMILY HISTORY: Negative upon questioning him. REVIEW OF SYSTEMS: A 10-point subsystem is all negative. PHYSICAL EXAMINATION: Vital signs: He is afebrile, heart rate 86, blood pressure 124/69. General: He is somewhat lethargic in his mental status. Integumentary system: Has a swollen right arm but no lesion noted. He has a fluctuant area in the right lateral calf but no wound. There is some mild erythema. Lungs: He has bilateral breath sounds. Heart: Regular rate and rhythm. Abdomen: Soft and nontender. Extremities: No peripheral edema. He has pedal pulses. He has swelling in the extremities more so on the right leg than the left, more so on the right arm than the left. Neurologic: Again neurologically, he has movement in all extremities. ASSESSMENT: Subcutaneous abscess right lateral calf. The plan will be an I and D. He is already covered for methicillin-resistant Staphylococcus aureus as he has been treated for that in the past. cc: Henrry Cage MD
--- NOTE | 2019-08-15 14:26 | PROGRESS NOTE ---
DATE: 08/15/2019 SUBJECTIVE: The patient has no major complaints. He is very drowsy, very, very drowsy. OBJECTIVE: Blood pressure is 124/69, heart rate 86, respiratory rate 18, temperature 97.8 degrees.Cardiovascular: Regular rate and rhythm. Pulmonary: Bilateral breath sounds clear to auscultation. GI: Soft, nontender, nondistended. Bowel sounds are positive. Physical Examination: He has swelling over his right upper extremity, mostly focused around the elbow, kind of a peau d'orange change, still swollen. Erythema is better. Surrounding cellulitis of the arm is better, but the rest of it is still swollen a bit. On his right lower extremity, he has a focal area that is fluctuant, about 3 to 5 cm in size that is enlarged and he seems to be doing okay from that standpoint, but he is having a lot of, it does look like a focal abscess. LABORATORY DATA: White count is down to 9, hemoglobin and hematocrit 929, platelets 633,000, potassium 3.4. PROBLEM LIST: 1. Right upper extremity cellulitis. He is on daptomycin and Zosyn and he seems to be doing better. Still no focal abscess in his arm. We will continue treatment and monitor. 2. Right lower extremity cellulitis that is also kind of improving except for the congestion around that abscess. Dr. Cage has evaluated the patient and feels like he needs I and D in the OR and then hopefully we can get some culture results. I think he may benefit from Dr. Bettencourt evaluating him as well just to review his antibiotics. 3. Sedation. I am going to decrease his Xanax, change his hydrocodone, stop the Flexeril, and monitor. I am not sure if he is over-sedating medications and we will monitor. DISPOSITION: Pending clinical status but he will be transferred to [facility] for further evaluation. cc: Chirag Colby MD
[2019-08-15] MEDS: TORADOL IV PRN (20:50)
[2019-08-15] MEDS: OFIRMEV 1000 MG/ISOTONIC SOLN 1,000 MG/100 ML BOTTLE IV PRN (20:50)
[2019-08-15] MEDS ORDERED: NORCO-10 PO ONE (22:17)
[2019-08-16] MEDS: OFIRMEV 1000 MG/ISOTONIC SOLN 1,000 MG/100 ML BOTTLE IV PRN ×2 (04:22→21:11)
[2019-08-16] MEDS: ZOSYN 3.375 GM in NS 50 ML IV SCH (04:23)
[2019-08-16] MEDS: TORADOL IV PRN ×3 (04:26→21:11)
[2019-08-16 06:30] LABS: AGAP 12; BUN 15 mg/dL (8-22); CALCIUM 7.8 mg/dL (8.8-10.2); CHLORIDE 98 mmol/L (98-107); COSMO 276; ESTIMATED GFR > 60; GLUCOSE 92 mg/dL (70-104); POTASSIUM 3.8 mmol/L (3.5-5.1); SODIUM 138 mmol/L (136-145); TCO2 28 mmol/L (25-35)
[2019-08-16 06:44] LABS: HEMATOCRIT 30.4 % (42.0-52.0); HEMOGLOBIN 10.1 g/dL (14.0-18.0); MCH 30.7 PG (27-31); MCHC 33.2 g/dL (33-37); MCV 92.4 FL (81-99); PLT 611 X1000 (130-400); RBC 3.29 XMIL (4.7-6.1); WBC 6.77 X1000 (4.8-10.8)
[2019-08-16 06:45] LABS: BASO# 0.04 X1000 (0.0-0.2); BASO% 0.6 % (0.0-0.8); LYMPH# 1.92 X1000 (1.2-3.4); LYMPH% 28.4 % (20.5-51.1); MONO# 0.55 X1000 (0.11-0.59); MONO% 8.1 % (1.7-9.3); MPV 8.2 FL (7.4-10.4)
[2019-08-16] MEDS ORDERED: ZOFRAN IV PRN (07:27)
[2019-08-16] MEDS ORDERED: DIPRIVAN 1% ONE (07:33)
[2019-08-16] MEDS ORDERED: XYLOCAINE-MPF 2% ONE (07:34)
[2019-08-16 07:37] LABS: BANDS 2 % (0-1); LYMPHS 30 % (21-51); MONO 2 % (1-9); SEGS 66 % (42-75)
[2019-08-16] MEDS ORDERED: CUBICIN 600 MG in NS 100 ML IV SCH (08:00)
[2019-08-16] MEDS ORDERED: TORADOL ONE (08:24)
[2019-08-16] MEDS ORDERED: ZOFRAN ONE (08:24)
--- NOTE | 2019-08-16 08:36 | OPERATIVE NOTE ---
PROCEDURE DATE: 08/16/2019 SURGEON: Henrry Cage MD. CLAY THROWER: Esperanza Altamirano RN. PREOPERATIVE DIAGNOSIS: Right lateral calf subcutaneous abscess. POSTOPERATIVE DIAGNOSIS: Right lateral calf subcutaneous abscess. NAME OF THE PROCEDURE: Incision and drainage of right lateral calf subcutaneous abscess. DESCRIPTION OF PROCEDURE: Satisfactory general anesthesia received. The right lower leg was prepped and draped in a sterile fashion. We made a longitudinal incision over the fluctuant area. We entered the abscess cavity. Purulence came forth. We digitally explored the cavity and we cultured it. We then irrigated it out copiously. We then packed it with saline impregnated gauze. Sterile 4x4s were applied. He tolerated it well and was sent to the recovery room in satisfactory condition. cc: Henrry Cage MD
[2019-08-16] MEDS ORDERED: VANCOMYCIN IV PER PHARMACY MISC SCH (08:45)
[2019-08-16] MEDS ORDERED: KEFZOL 2 GM/D5W 2 GM/50 ML IVPB IV SCH (09:00)
[2019-08-16] MEDS ORDERED: DIFLUCAN PO SCH (09:00)
[2019-08-16] MEDS ORDERED: LASIX PO SCH (09:00)
[2019-08-16] MEDS: ULTRAM PO PRN ×3 (09:33→22:23)
[2019-08-16] MEDS: LASIX PO SCH (09:34)
[2019-08-16] MEDS: NICODERM PATCH TD SCH (09:34)
[2019-08-16] MEDS: CATAPRES PO SCH (09:34)
[2019-08-16] MEDS ORDERED: ZOSYN 3.375 GM in NS 50 ML IV SCH (10:00)
--- NOTE | 2019-08-16 11:08 | INFECTIOUS DISEASE CONSULT REP ---
DATE: 08/16/2019 CONCLUSION: The patient is admitted to the hospital. He has a right arm cellulitis and a right leg cellulitis and abscess. The abscess has been drained today by Dr. Henrry Cage. The patient also has 1 out of 4 blood cultures positive for bacillus. I think this is a contaminant. RECOMMENDATIONS: I think it is reasonable to treat the patient with vancomycin pending identification of the infection. Some of the side effects of vancomycin including rash, renal toxicity, and ototoxicity have been explained to the patient, who agrees with treatment. As regarding the positive blood culture for bacillus, since it is a contaminant and not a pathogen, it does not require antibiotic treatment. DISCUSSION: The patient has a 2-week history of erythema and swelling in his right arm and leg. He does not remember having any insect bite. He does not remember having any trauma to the arm and leg either. His laboratory studies show a CBC with a white count of 6770, hemoglobin 10.1, platelet count of 611,000. Creatinine is 1.0. GFR is greater than 60. As I mentioned earlier, 1 out of 4 blood cultures is growing bacillus, which is a contaminant and does not require antibiotic treatment. CT scan of the arm showed cellulitis. The patient's pulmonary angiogram shows no abnormality. The cultures taken today from surgery are pending. PAST MEDICAL HISTORY/REVIEW OF SYSTEMS: Eyes and Ears: He hears and sees okay. Neck: No stiffness. Respiratory: No cough or shortness of breath. Cardiac: No chest pain or palpitations. GI: No nausea, vomiting, or diarrhea. : No dysuria or flank pain. PREVIOUS HOSPITALIZATIONS AND OPERATIONS: He has had hernia surgery. MEDICAL DISEASES: Negative for diabetes mellitus and hypertension. 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 INFECTIOUS DISEASE HISTORY: Negative for pneumonia and UTI. FAMILY HISTORY: Positive for hypertension, myocardial infarction, stroke, and cancer. SOCIAL HISTORY: [place] He smokes cigarettes and drinks alcoholic beverages but he denies using illicit drugs. He does not have any pets at home. He is disabled, as mentioned above, because of his degenerative joint disease in his spine. PHYSICAL EXAMINATION: Vital Signs: Temperature is 97.5 degrees, pulse 76, respirations 18, blood pressure 118/70. Patient is 6 feet tall and weighs 153 pounds. General: This is a chronically ill-appearing, middle-aged male. He is in no acute distress. Head, Eyes, Ears, Nose, and Throat: He can hear my spoken words and see near objects. No drainage is noted from the nose or ears. There were no white patches on his tongue. Neck: No meningismus. Lungs: Clear to auscultation. Cardiovascular: Heart rate is regular. Abdomen: Soft and nontender. Extremities: The patient's right arm is erythematous, swollen, and tender. The right leg is too and it has a large dressing on it which is intact. Neurologic: The patient is alert. He can move his extremities. There is no tremor. His memory as regarding his medical history is intact. Integument: No rash noted. Thank you for the consult. cc: Jethro Bettencourt MD
--- NOTE | 2019-08-16 12:17 | PROGRESS NOTE ---
DATE: 08/16/2019 SUBJECTIVE: The patient reports still complaining of bad pain in the surgical area. He had incision and drainage of the subcutaneous abscess. OBJECTIVE: Vital Signs: Temperature 97.4 degrees, heart rate 77, respiratory rate 14, blood pressure 122/76, O2 saturation 100% on room air. General: This is a 64-year-old, male, lying in bed in no acute distress. Cardiovascular: S1, S2 heard. No murmurs, gallops, or rubs. Regular rate and rhythm. Respiratory: Clear bilaterally to auscultation. No work of breathing or using accessory muscles. Abdomen: Soft. Nontender to palpation. Bowel sounds present. No organomegaly. Extremities: Swelling in the right upper extremity in the elbow. Also, the right lower extremity is covered with dressing. Neurological: The patient is alert and oriented x3. Moves all 4 extremities. LABORATORY DATA: White cell count 6.77, hemoglobin 10.1, hematocrit 30.4, platelets 611,000. Cultures, of course, of the drainage from the abscess are still pending. ASSESSMENT AND PLAN: 1. Right upper extremity cellulitis. The patient is on vancomycin. Dr. Bettencourt from Infectious Disease is following this patient. 2. Right lower extremity abscess, status post incision and drainage. Dr. Cage has performed that procedure. At this point, the patient is feeling much better. Will continue with the same management. 3. Sedation. It was reported that while he was in [facility], he was requiring a lot of pain medications, in this case it was Lavinia, to the point that he needed to have Naloxone. In that regard, he is on Tylenol and Toradol. He reports being in a lot of pain, although he does not look to be and he does not grimace in pain. I have seen that he has been started on tramadol 50 mg every 6 hours. Will continue with that management. cc: Vaughn Callahan MD
[2019-08-16] MEDS: VANCOMYCIN 2 GM in NS 500 ML IV SCH (12:42)
[2019-08-17] MEDS ORDERED: NORCO-10 PO ONE (01:07)
[2019-08-17 06:53] LABS: BASO# 0.06 X1000 (0.0-0.2); BASO% 0.8 % (0.0-0.8); EOS# 0.33 X1000 (0.0-0.7); EOS% 4.2 % (0.0-10.0); HEMATOCRIT 28.6 % (42.0-52.0); HEMOGLOBIN 9.4 g/dL (14.0-18.0); IMM GRAN# 0.02 X1000 (0.0-0.04); IMM GRAN% 0.3 % (0.0-0.5); LYMPH# 1.87 X1000 (1.2-3.4); LYMPH% 24.1 % (20.5-51.1); MCH 30.8 PG (27-31); MCHC 32.9 g/dL (33-37); MCV 93.8 FL (81-99); MONO# 0.54 X1000 (0.11-0.59); MONO% 6.9 % (1.7-9.3); MPV 8.3 FL (7.4-10.4); NEUT# 4.95 X1000 (1.4-6.5); NEUT% 63.7 % (42.2-75.2); PLT 587 X1000 (130-400); RBC 3.05 XMIL (4.7-6.1); RDW 13.7 % (11.5-14.5); WBC 7.77 X1000 (4.8-10.8)
[2019-08-17] MEDS: OFIRMEV 1000 MG/ISOTONIC SOLN 1,000 MG/100 ML BOTTLE IV PRN (07:03)
[2019-08-17] MEDS: TORADOL IV PRN ×2 (07:03→14:03)
[2019-08-17 07:04] LABS: AGAP 9; BUN 15 mg/dL (8-22); CALCIUM 7.8 mg/dL (8.8-10.2); CHLORIDE 100 mmol/L (98-107); COSMO 274; CREATININE 0.9 mg/dL (0.7-1.2); ESTIMATED GFR > 60; GLUCOSE 85 mg/dL (70-104); POTASSIUM 4.2 mmol/L (3.5-5.1); SODIUM 137 mmol/L (136-145); TCO2 28 mmol/L (25-35)
[2019-08-17] MEDS: ULTRAM PO PRN ×2 (07:04→14:03)
[2019-08-17] MEDS: NICODERM PATCH TD SCH (08:08)
[2019-08-17] MEDS: CATAPRES PO SCH (08:08)
[2019-08-17] MEDS: LASIX PO SCH (08:08)
[2019-08-17] MEDS: VANCOMYCIN 2 GM in NS 500 ML IV SCH (10:23)
[2019-08-17] MEDS: NORCO-5 PO PRN ×2 (16:42→23:15)
--- NOTE | 2019-08-17 17:37 | PROGRESS NOTE ---
DATE: 08/17/2019 SUBJECTIVE: Patient continues to complain of really bad pain around the surgical area. Denies any fever or chills. OBJECTIVE: Vital Signs: Temperature 97.5 degrees, heart rate 65, respiratory rate 14, blood pressure 115/52, O2 saturation 100% on room air. General examination: This is a 64-year-old male, lying in bed, in no acute distress. Cardiovascular: S1, S2 heard. No murmurs, gallops, or rubs. Regular rate and rhythm. Respiratory Exam: Clear bilaterally to auscultation. No work of breathing or using accessory muscles. Abdomen: Soft. Nontender to palpation. Bowel sounds present. No organomegaly. Extremities: Right lower extremity covered by dressing. Neurological exam: Patient is alert and oriented x3. Moves 4 extremities. LABORATORY DATA: Reviewed. ASSESSMENT AND PLAN: 1. Right upper extremity cellulitis. We will continue with vancomycin. Dr. Bettencourt of infectious disease is following this patient. 2. Right lower extremity abscess status post incision and drainage. Procedure performed by Dr. Cage yesterday. We have checked results of wound culture, and that is negative. I think it is because this patient has been on antibiotics so I think at this point I have talked with Dr. Bettencourt today to see if this patient can be discharged today or not and in case he can, to let us know what antibiotics we can use. We will follow his recommendations. 3. Oversedation. There was a concern when this patient was transferred over here from [place] that this patient was requesting a lot of pain medication to the point that he needed to be given Narcan to counteract the action of the opiates. I went and talked to him about this, but patient does not seem to understand the risks of taking a lot of opiates and keep requesting those. Yesterday, he tried to leave the hospital AMA. I think at this point we are not going to change any pain medications for him. We will monitor this patient closely. We will see if this patient can be discharged tomorrow. cc: Vaughn Callahan MD
--- NOTE | 2019-08-17 21:42 | INFECTIOUS DISEASE PROGRESS NO ---
DATE: 08/17/2019 PRESENT ILLNESS: The patient has a right arm cellulitis and a right leg cellulitis and abscess. The abscess has been drained by Dr. Henrry Cage. MEDICATIONS: The patient is receiving IV vancomycin. PHYSICAL EXAMINATION: Vital Signs: Temperature is 97.5 degrees, pulse 65, respirations 14, blood pressure 115/52. General: This is a somewhat ill-appearing, middle-aged male. He is in no acute distress. Head, eyes, ears, nose, and throat: He can hear my spoken words and see near objects. He does not have any white patches in his mouth. Neck: No pain with movement. Lungs: Clear to auscultation. Cardiovascular: Regular heart rate. Abdomen: Soft and nontender. Extremities: The patient's right arm and right leg both are less erythematous and swollen. Neurologic: The patient is alert. He can move his extremities. There is no tremor. LAB AND X-RAY STUDIES: All the cultures from the patient's leg are negative thus far. One out of four blood cultures grew bacillus, which I think is a contaminant. CBC shows a white count of 7770, hemoglobin 9.4, and platelet count 587,000. Creatinine is 0.9. GFR is greater than 60. ASSESSMENT AND PLAN: The patient has arm and leg cellulitis along with a leg abscess that has been drained by Dr. Cage. The plan for now is to continue treatment with vancomycin pending final culture results. COMORBIDITIES: I really did not find any comorbidities in this patient. cc: Jethro Bettencourt MD
--- NOTE | 2019-08-17 22:51 | GENERAL SURGERY PROGRESS NOTE ---
DATE: 08/17/2019 His wound is inspected. It's clean. He has continued to pack it with Vashe gauze. It is okay with me that he be discharged whenever it is a good with the other physicians. He can return to see me in the office in followup. cc: Henrry Cage MD
[2019-08-18] MEDS: ULTRAM PO PRN ×2 (02:39→17:18)
[2019-08-18 06:42] LABS: AGAP 11; BUN 13 mg/dL (8-22); CALCIUM 8.2 mg/dL (8.8-10.2); CHLORIDE 99 mmol/L (98-107); COSMO 278; CREATININE 0.9 mg/dL (0.7-1.2); ESTIMATED GFR > 60; GLUCOSE 106 mg/dL (70-104); POTASSIUM 4.2 mmol/L (3.5-5.1); SODIUM 139 mmol/L (136-145); TCO2 29 mmol/L (25-35)
[2019-08-18 06:53] LABS: HEMATOCRIT 30.1 % (42.0-52.0); HEMOGLOBIN 10.2 g/dL (14.0-18.0); MCH 31.6 PG (27-31); MCHC 33.9 g/dL (33-37); MCV 93.2 FL (81-99); PLT 607 X1000 (130-400); RBC 3.23 XMIL (4.7-6.1); RDW 13.5 % (11.5-14.5); WBC 9.29 X1000 (4.8-10.8)
[2019-08-18 06:54] LABS: BASO# 0.05 X1000 (0.0-0.2); BASO% 0.5 % (0.0-0.8); LYMPH# 1.24 X1000 (1.2-3.4); LYMPH% 13.3 % (20.5-51.1); MONO# 0.43 X1000 (0.11-0.59); MONO% 4.6 % (1.7-9.3); MPV 8.3 FL (7.4-10.4)
[2019-08-18] MEDS: NORCO-5 PO PRN ×2 (07:01→11:36)
[2019-08-18 08:08] LABS: EOS 4 % (1-10); LYMPHS 6 % (21-51); MONO 4 % (1-9); SEGS 86 % (42-75)
[2019-08-18] MEDS ORDERED: PERIDEX MT SCH (09:00)
[2019-08-18] MEDS: CATAPRES PO SCH ×2 (09:01→09:03)
[2019-08-18] MEDS: LASIX PO SCH (09:02)
[2019-08-18] MEDS: NICODERM PATCH TD SCH (09:03)
[2019-08-18 11:07] VITALS: BP 128/82
[2019-08-18] MEDS: VANCOMYCIN 2 GM in NS 500 ML IV SCH (11:22)
--- NOTE | 2019-08-18 21:20 | INFECTIOUS DISEASE PROGRESS NO ---
DATE: 08/18/2019 PRESENT ILLNESS: Mr. Guillaume has a right upper extremity cellulitis and right lower extremity cellulitis with abscess and is status post incision and drainage of that abscess by Dr. Cage. MEDICATIONS: He has been on IV vancomycin per pharmacy dosing. PHYSICAL EXAMINATION: Vital Signs: Temperature is 97.7 degrees, pulse rate 72, respiratory rate 16, blood pressure 128/82, O2 saturation 100% on room air. General: This is a somewhat ill- appearing, middle-aged male. He is lying in the bed on his left lateral side currently in no acute distress. HEENT: Atraumatic, normocephalic. Oral mucous membranes are pink and moist. Conjunctivae are pink. Neck: Supple. Trachea is midline. Cardiovascular: Heart rate is regular. Respiratory: Lung sounds are clear to auscultation bilaterally. Abdomen: Soft, round and nontender. Bowel sounds are active. Extremities: There is erythema and induration noted to the right upper extremity particularly around the area of the elbow and forearm. There is also a dressing around the right calf which is dry and intact with a considerable amount of erythema and edema to the ankle and foot area which is pitting +1 above a dressing and +2 to 3 below. He is able to move his extremities independently. Neurologic: He is awake, alert, oriented, and able to move all extremities without difficulty. There is some pain to the right upper extremity and lower extremity but he is moving independently. LABORATORY AND X-RAY: Today his white count is 9.29, hemoglobin 10.2, platelet count 607,000 is 0.9. Estimated GFR is greater than 60. It has been 48 hours since the right leg culture which has shown no growth so far; although, the preliminary report is still pending. The Gram stain only showed 1+ white blood cells. No imaging reports today. ASSESSMENT AND PLAN: Mr. Guillaume has a right upper extremity and right lower extremity cellulitis and has had an abscess drained on this admission. He is doing better with less swelling and erythema than previously. At this point, the plan is for him to be discharged home. He is going to be receiving Bactrim DS one every 12 hours, and amoxicillin 1 g every 12 hours for a total of 9 days. We will see him back in the office on of next week. Prescriptions have been put on the front of his chart and possible side effects of these medications have been reviewed with the patient, which includes rash, diarrhea and mouth pain or sores. He has been instructed to call for any of these issues. He has also been instructed to elevate his left upper and left lower extremities as often as possible. These plans have been discussed with and recommended by Dr. Bettencourt. COMORBIDITIES: For Mr. Guillaume include chronic pain, COPD and history of MRSA. Dictated by AUNDREA Eckert for Jethro Bettencourt MD cc: Jethro Bettencourt MD [facility]
--- NOTE | 2019-08-19 12:12 | DISCHARGE SUMMARY ---
ADMISSION DATE: 08/06/2019 DISCHARGE DATE: 08/18/2019 DISCHARGE DIAGNOSIS: Cellulitis of the right arm, and cellulitis of the right leg with early abscess formation. PROCEDURES: Incision and drainage per Dr. Cage in the OR on 08/16/2019. CONSULTATIONS: 1. Dr. Bettencourt, Infectious Diseases. 2. Dr. Cage, General Surgery. HISTORY AND HOSPITAL COURSE: Briefly, this is a 64-year-old male, really no major medical problems, hypertension, who presents with swelling and pain in his right arm. He was placed on vancomycin. He had an ultrasound, which was negative for DVT, a PE study that was negative for other issues. He had a very, very slow recovery, and he had cultures that were all negative. We did CT his arm on 08/12/2019, which showed no abscess. I repeated his venous ultrasound, which was negative. Slowly, he did improve. However, he started developing a focal lesion over his right leg that looked like an early abscess. I had Dr. Cage evaluate it, and he felt that it needed I and D, and he was transferred to the main hospital for treatment, at which point he had been on vancomycin, and we switched him to daptomycin and Zosyn before we sent him over because the vancomycin level, I think, was very high. Dr. Bettencourt, I think, put him back on vancomycin, and clinically he has improved. Arm looks better today. He has had the I and D. Unfortunately, there has been no culture, but he had been on several antibiotics prior to that. In any case, he was felt stable for discharge. He will need to follow up with Dr. Cage in 1 week, and Dr. Bettencourt' clinic in 1 week. DISCHARGE MEDICATIONS: Amlodipine 10, clonidine 0.1, indomethacin p.r.n., Flexeril 10 at bedtime, amoxicillin 1 gram every 12 hours for 9 days, and Bactrim DS 1 p.o. every 12 hours for 9 days, [place] every 6 hours p.r.n. pain, Xanax 1 p.o. b.i.d. Be very careful on this patient because we did have to give him Narcan during this hospitalization just because of too much pain medication on board, so we need to be very careful with him in that setting. TIME SPENT: A 32-minute discharge. cc: MD Nahun Parham MD Moses Awoniyi, MD Leroy F. Harris, MD
== END 2019-08-18 18:05 | disposition home or self-care (01) | DRG 580 ==
LOC: P.ED 14:02 → SUATTDRO 19:59 → P.MEDSURG 19:59 → 4N 08-15 16:51
PROVIDERS: ATTEND Internal Medicine

== ENCOUNTER 2019-10-30 13:46 | Inpatient (IN) ==
[2019-10-30] MEDS ORDERED: ROCEPHIN 1 GM in NS 50 ML IV ONE (14:48)
[2019-10-30] MEDS ORDERED: VANCOMYCIN 1 GM/NS 1 GM/250 ML IVPB IV ONE (14:49)
[2019-10-30 15:49] LABS: BASO# 0.02 X1000 (0.0-0.2); BASO% 0.1 % (0.0-0.8); EOS# 0.01 X1000 (0.0-0.7); EOS% 0.1 % (0.0-10.0); HEMATOCRIT 33.2 % (42.0-52.0); HEMOGLOBIN 11.3 g/dL (14.0-18.0); IMM GRAN# 0.05 X1000 (0.0-0.04); IMM GRAN% 0.3 % (0.0-0.5); LYMPH# 0.74 X1000 (1.2-3.4); LYMPH% 3.7 % (20.5-51.1); MCH 30.7 PG (27-31); MCV 90.2 FL (81-99); MONO# 0.49 X1000 (0.11-0.59); MONO% 2.5 % (1.7-9.3); MPV 8.2 FL (7.4-10.4); NEUT# 18.54 X1000 (1.4-6.5); NEUT% 93.3 % (42.2-75.2); PLT 472 X1000 (130-400); RBC 3.68 XMIL (4.7-6.1); RDW 13.1 % (11.5-14.5); WBC 19.85 X1000 (4.8-10.8)
[2019-10-30 16:04] LABS: ESTIMATED GFR > 60
[2019-10-30 16:10] LABS: AGAP 15; ALB/GLOB RATIO 0.7; ALBUMIN 2.8 g/dL (3.5-5.0); ALKALINE PHOSPHATASE 103 U/L (32-122); BUN 12 mg/dL (8-22); CALCIUM 8.5 mg/dL (8.8-10.2); CHLORIDE 87 mmol/L (98-107); COSMO 254; CREATININE 0.8 mg/dL (0.7-1.2); GLUCOSE 87 mg/dL (70-104); GOT 20 U/L (10-34); GPT 9 U/L (10-44); POTASSIUM 3.8 mmol/L (3.5-5.1); SODIUM 127 mmol/L (136-145); TCO2 25 mmol/L (25-35); TOTAL BILIRUBIN 0.41 mg/dL (0.20-1.00); TOTAL PROTEIN 6.6 g/dL (6.3-8.3)
--- NOTE | 2019-10-30 16:32 | PROVIDER DOCUMENTATION ---
HPI-General Adult - General Chief Complaint: Sores/Lesions Stated Complaint: PAIN Time Seen by Provider: 10/30/19 14:18 Source: patient Allergies/Adverse Reactions: Patient Allergies Allergy/AdvReac Type Severity Reaction Status Date / Time No Known Allergies Allergy Verified 10/30/19 15:11 Home Medications: Home Medication List Medication Instructions Recorded Confirmed Last Taken Type Amlodipine Besylate 10 mg PO DAILY 07/28/17 10/30/19 Unknown History Alprazolam [Xanax] 1 mg PO BID PRN PRN tablet 01/29/18 10/30/19 Unknown Rx - History of Present Illness -Gen Adult Nature of Presenting Problems: Patient is here with c/o b/l ulceration to the right foot, b/l lower extremity pain and redness to the left foot. He was admitted 3 months ago for similar complaints , treated with vanco, actimomycin and zosyn with slow recovery, discharged home on a 9 day course of amoxil 1gm bid. He reports temporary i mprovement. He had venous uss done as impatient x2 and were both neg for DVT and also neg PE work up. Also reports mild suprapubic pain Location of Pain/Injury: reports: lower extremity Pain Radiation: reports: legs (lower) Quality of Pain: reports: aching Severity: reports: mild, moderate Onset/Duration: reports: other (months) Timing: reports: still present Context/Activities at Onset: reports: none Modifying Factors: improves with: nothing Associated Symptoms: reports: denies symptoms Similar Symptoms Previously?: Yes Recently seen or treated by another doctor?: Yes Review of Systems - Adult - REVIEW OF SYSTEMS - ADULT Constitutional: reports: no symptoms reported Eyes: reports: no symptoms reported Ears, Nose, Mouth & Throat: reports: no symptoms reported Cardiovascular: reports: no symptoms reported Respiratory: reports: no symptoms reported Gastrointestinal: reports: no symptoms reported Genitourinary: reports: see HPI Musculoskeletal: reports: see HPI Integumentary: reports: see HPI Neurological: reports: no symptoms reported Psychiatric: reports: no symptoms reported Endocrine: reports: no symptoms reported Hematologic/Lymphatic: reports: no symptoms reported Allergic/Immunologic: reports: no symptoms reported Past History - Adult - PAST MEDICAL HISTORY-ADULT Review of Records: reports: Nursing Assessment Review, Medications Reviewed, Social history reviewed & non-contributory. Major Childhood Illnesses: reports: denies history Cardiovascular: reports: HTN Respiratory: reports: COPD Gastrointestinal: reports: denies history Obstetrical/Gynecological: reports: denies history Genitourinary: reports: denies history Musculoskeletal: reports: chronic pain (chronic low back pain), neck/back injury , other (DDD) Neurological: reports: denies history Psychiatric: reports: anxiety, other (panic attacks) Endocrine/Immune: reports: denies history Other Conditions: reports: MRSA - PRIOR SURGERIES/PROCEDURES Surgical/Procedure History: reports: hernia repair - IMMUNIZATION STATUS Childhood Immunizations: See Nurse Assessment Flu Vaccine: See Nurse Assessment - FAMILY HISTORY Family History: reviewed, not pertinent - SOCIAL HISTORY Smoking: cigarettes Substance Use: alcohol, amphetamines (a little bit) Living Situation: alone Physical Exam-General - PHYSICAL EXAM-ADULT Initial Vital Signs Reviewed: Yes - CONSTITUTIONAL General Appearance: appears well, alert, no apparent distress - EYES Eyes: PERRL/EOMI - HEAD, EARS, NOSE, MOUTH & THROAT HENMT: normocephalic/atraumatic, moist mucous membranes - NECK Neck: non-tender, full range of motion, supple - RESPIRATORY Respiratory: chest non-tender, lungs clear - CARDIOVASCULAR Cardiovascular: regular rate, rhythm, no edema - GASTROINTESTINAL (ABDOMEN) Abdominal Exam: non tender, soft, tenderness (mild , suprapubic) - MUSCULOSKELETAL Back Exam: no CVA tenderness Extremity: erythema, tenderness (b/l legs. right leg is scally with cracks and shallow ulcers on the leg. left leg appears erythematous, mildly warm. No calf swelling but tenderness on both legs) - SKIN Integumentary: other (small abscess on the right thumb) Progress - PLAN OF CARE/RESULTS Progress/Plan/Lab Results: Vital Signs - 8 hr 10/30/19 14:20 Temperature 98.1 F Pulse Rate 96 H Respiratory Rate 20 Blood Pressure 137/72 O2 Sat by Pulse Oximetry 100 Laboratory Results - last 24 hr 10/30/19 10/30/19 15:28 15:28 WBC 19.85 H RBC 3.68 L Hgb 11.3 L Hct 33.2 L MCV 90.2 MCH 30.7 MCHC 34.0 RDW Std Deviation 13.1 Plt Count 472 H MPV 8.2 Immature Gran % (Auto) 0.3 Neut % (Auto) 93.3 H Lymph % (Auto) 3.7 L Warrick % (Auto) 2.5 Eos % (Auto) 0.1 Baso % (Auto) 0.1 Immature Gran # (Auto) 0.05 H Neut # (Auto) 18.54 H Lymph # (Auto) 0.74 L Warrick # (Auto) 0.49 Eos # (Auto) 0.01 Baso # (Auto) 0.02 Sodium 127 L Potassium 3.8 Chloride 87 L Carbon Dioxide 25 Anion Gap 15 BUN 12 Creatinine 0.8 Estimated GFR/1.73 m2 > 60 BUN/Creatinine Ratio 15 Glucose 87 Calculated Osmolality 254 Calcium 8.5 L Total Bilirubin 0.41 AST 20 ALT 9 L Alkaline Phosphatase 103 Total Protein 6.6 Albumin 2.8 L Globulin 3.8 Albumin/Globulin Ratio 0.7 Orders Category Date Time Status BLOOD CULTURE [BLDCUL] Stat Lab 10/30/19 14:41 Uncollected CBC WITH DIFF [HEME] Stat Lab 10/30/19 15:28 Completed COMPREHENSIVE METABOLIC PANEL [CHEM] Stat Lab 10/30/19 15:28 Completed URINALYSIS W/POSS RFLX CULT [URINALYSIS] Stat Lab 10/30/19 14:41 Uncollected CefTRIAXONE [Rocephin] 1 gm Med 10/30/19 14:48 Discontinued 0.9% Sodium Chloride Inj [Ns] 50 ml IV NOW Vancomycin 1 gm/Ns Med 10/30/19 14:49 Discontinued 1 gm in 250 ml IV NOW Result Diagrams: 10/30/19 15:28 10/30/19 15:28 - REASSESSMENT Reassessment #1 Time Reassessed: 16:59 Status: improving (doing okay,Shallow abscess noted on the right thumb, was aspirated, sent for culture) - CONSULTS/PCP/HOSPITALIST Notification #1 *Consult/PCP/Hospitalist*: Hospitalist, Spoke with HARDWARE DESIGN ENGINEER Time Discussed: 17:00 Consult Disposition: Admit (HARDWARE DESIGN ENGINEER bBecky admitted pt to Hospitalist service) Departure - Departure Date of Disposition Decision: 10/30/19 Time of Disposition Decision: 17:01 DIAGNOSIS: Cellulitis Qualifiers: Site of cellulitis: extremity Site of cellulitis of extremity: lower extremity Laterality: unspecified laterality Qualified Code(s): L03.119 - Cellulitis of unspecified part of limb Disposition: ADMITTED INPATIENT 09 Certified Medical Emergency: Emergent Condition: Fair Referrals and Follow-Ups: None,PCP [Primary Care Provider] - Discharge Education: Steps to Quit Smoking, [id number] - Critical Care Note This patient required my direct & personal management of CC.: No Attestation - Physician/ ROSEY Attestation Patient care was provided by Advanced Practice Provider:: No The physician spent face to face time with patient:: Yes Advanced Practice Provider documentation review:: Supervising physician onsite and consulted in the evaluation and care of this patient. The physician did have a face to face encounter with the patient.
[2019-10-30] MEDS ORDERED: VANCOMYCIN IV PER PHARMACY MISC SCH (17:15)
--- NOTE | 2019-10-30 18:10 | HISTORY AND PHYSICAL ---
CHIEF COMPLAINT: Lower extremity pain, redness. HISTORY OF PRESENT ILLNESS: This is a 64-year-old gentleman with a history of hypertension, COPD, chronic back and neck pain and MRSA who presents to the emergency room complaining of increased swelling, pain, redness and warmth to bilateral lower extremities. Mr. Guillaume was admitted to the hospital from August 06 to August 18 having cellulitis of the right arm and right leg with early abscess formation. Wound cultures were negative at this time. He had 1/4 blood cultures positive for bacillus that was presumed a contaminant. He was evaluated by Dr. Cage and Dr. Jethro Bettencourt, Infectious Disease. He was ultimately discharged from the hospital on August 18 having amoxicillin 1 g every 12 hours for 9 days, Bactrim DS 1 every 12 hours for 9 days. He states that he took his antibiotics as he was instructed, and he feels that his legs never got better. He states he has been unable to walk due to pain, and he has had a friend who has been emptying the urinal for him. He states he has eaten very little over the last 2 weeks, and he is noted to have an albumin of 2.8. Of note, while Mr. Guillaume was in the hospital, he requested pain medicine continuously. In fact he had to be given Narcan because too much was on board so we will have to watch his sedation status closely. PAST MEDICAL HISTORY: 1. Hypertension. 2. Chronic obstructive pulmonary disease. 3. Chronic back pain and neck pain. 4. Panic attacks. 5. History of MRSA. PAST SURGICAL HISTORY: Hernia repair. SOCIAL HISTORY: He smokes a pack a day. He says he drinks 2 beers a week although lately he has been drinking more. He does smoke marijuana occasionally. ALLERGIES: No known drug allergies. HOME MEDICATIONS: Xanax 1 mg p.o. b.i.d. and amlodipine 10 mg p.o. daily. REVIEW OF SYSTEMS: Discussed with the patient with pertinent positives stated in the HPI. He denied any syncope or dizziness, any chest pain or palpitations, shortness of breath, cough, fever, chills, any night sweats, any nausea, vomiting, diarrhea, constipation, black or bloody vomitus or stools, any hematuria, dysuria, frequency, urgency. PHYSICAL EXAMINATION: GENERAL: This is a 64-year-old gentleman who is sitting up in the stretcher in the emergency room in no distress. VITAL SIGNS: Blood pressure is 128/77 with heart rate of 90, respirations are 18, temperature is 98.1 degrees with room air saturations 99% to 100%. HEENT: Head is normocephalic, atraumatic. Mucous membranes are moist. NECK: Supple with trachea midline. CARDIOVASCULAR: Regular rate and rhythm. S1 and S2 appreciated. He has bilateral lower extremity edema. PULMONARY: Breath sounds are clear with no increased work of breathing noted. Chest rises and falls symmetric with respiration. Chest wall is nontender to palpation. GASTROINTESTINAL: Abdomen is soft, nontender, nondistended with bowel sounds in all 4 quadrants. GENITOURINARY: He has no CVAT. He does have suprapubic tenderness. NEUROLOGIC: He is alert and oriented x3. LABORATORY DATA: WBC is 19 with hemoglobin 11.3, hematocrit 33.2, platelets 472,000. Sodium 127, potassium 3.8, BUN 12, creatinine 0.8 with a glucose of 87. Blood cultures are pending. Abscess right thumb culture is pending. ASSESSMENT AND PLAN: 1. Bilateral lower extremity cellulitis. 2. Leukocytosis. 3. Hyponatremia. 4. History of coronary artery disease. 5. Hypertension. PLAN: The patient will be admitted to the hospital. He will be placed on telemetry. Blood cultures and wound cultures were obtained. Vancomycin and Zosyn were ordered. We will continue these. We will give gentle IV hydration. We will consult Wound Care. Repeat a CBC, BMP in the morning. He does have suprapubic tenderness. Urinal at his bedside has a liter of urine present. We will scan his bladder and evaluate after residual is called. We will identify his home medications and continue as appropriate. As stated above, the patient has a history of easy over-sedation, so we will be cautious giving any sedating medications and monitor closely. Patient was evaluated with Dr. Larios. Plan was discussed. Further treatments pending hospital course. Dictated by AUNDREA Cuevas for Jean Larios MD cc: AUNDREA Cuevas MD [facility]
--- NOTE | 2019-10-30 18:31 | HISTORY AND PHYSICAL ---
ADDENDUM REPORT: I have seen and examined Mr. Guillaume today in the emergency room. He presented early this afternoon because of pains in both lower extremities and worsening of swelling. Mr. Guillaume was discharged from the hospital on 08/18/2019 after he spent almost 2 weeks for a similar presentation, according to him, he was doing well until his oral antibiotics ran out. He is not able to tell me how long that was given for but for the past week both lower extremities have been getting swollen and more red. He came to the emergency room today because of progressively worsening. He was evaluated, found to be with elevated white cell count, we have been consulted for skin and soft tissue infection with systemic reaction. The patient's physical exam for the most part unremarkable except for lower extremities. He does have erythematous changes on both lower extremities. The right lower extremity does have crackly skin. The left only has remarkable erythematous changes, warm to touch all the way up to the upper calve in both sides. His chest is clear. There is some mild swelling over the right big finger which I understand has been incised at the ER and culture has been taken. I have reviewed his lab work as well both CBC and chemistry. ASSESSMENT: 1. Bilateral lower extremity cellulitis with crackly skin on the right lower extremity associated with generalized systemic inflammatory response. Patient will continue to be on IV antibiotics. We will get Infectious Disease to see him and Wound Care. 2. Clinical volume depletion. Patient is on IV fluids. 3. Hypertension. Please refer to the details of the history and physical that has been dictated by the COOKER CASING in the chart. cc: Jean Larios MD
[2019-10-30] MEDS ORDERED: VANCOMYCIN 1,750 MG in NS 250 ML IV ONE (19:00)
[2019-10-30 19:11] LABS: INR 1.13; PROTIME 14.7 Seconds (11.0-16.0)
[2019-10-30 19:13] LABS: PTT 39.1 Seconds (22.3-41.8)
[2019-10-30] MEDS: ZOSYN 3.375 GM in NS 50 ML IV SCH ×2 (19:33→23:18)
[2019-10-30 19:46] LABS: CK INDEX 1.4 (0.0-2.5); CK-MB 3.66 ng/mL (0.0-5.0)
--- NOTE | 2019-10-30 20:17 | Diag Imaging Result Doc PS360 ---
EXAM: CHEST-1 VIEW HISTORY: Sepsis Protocol TECHNIQUE: Single view COMPARISON: 07/29/2018 FINDINGS: The lungs are well expanded. The heart is not enlarged. The vessels are not distended. There are no infiltrates. No effusion identified. IMPRESSION: No pneumonia Electronically signed by Fred Wallace 10/30/2019 8:15 PM
[2019-10-30] MEDS ORDERED: ROCEPHIN ONE (20:50)
[2019-10-30] MEDS ORDERED: NS 50 ML ONE (20:52)
[2019-10-30] MEDS: NORCO-7.5 PO PRN (23:05)
[2019-10-30 23:22] LABS: URINE SOURCE CATH
[2019-10-30 23:25] LABS: BILIRUBIN URINE NEGATIVE (NEGATIVE); BLOOD URINE NEGATIVE (NEGATIVE); COLOR YELLOW; GLUCOSE URINE NEGATIVE (NEGATIVE); KETONE URINE NEGATIVE (NEGATIVE); LEUKOCYTES URINE NEGATIVE (NEGATIVE); NITRITE URINE NEGATIVE (NEGATIVE); PROTEIN URINE TRACE mg/dL (NEGATIVE); SP GRAVITY URINE 1.018; TURBIDITY URINE CLEAR (CLEAR); UR EPITHELIAL CELLS <10 /HPF (<10); URINE BACTERIA NEGATIVE /HPF; URINE RBC <10 /HPF (<10); URINE WBC <10 /HPF (<10); UROBILINOGEN URINE 2 mg/dL (NORMAL)
[2019-10-31] MEDS: ZOSYN 3.375 GM in NS 50 ML IV SCH ×4 (04:14→22:57)
[2019-10-31] MEDS: NORCO-7.5 PO PRN (04:23)
[2019-10-31] MEDS: VANCOMYCIN 1,250 MG in NS 250 ML IV SCH ×2 (06:30→18:53)
[2019-10-31] MEDS: DILAUDID IV PRN ×5 (06:31→22:55)
[2019-10-31] MEDS: ZOFRAN IV PRN ×2 (06:31→10:09)
[2019-10-31] MEDS: PRILOSEC PO SCH (06:42)
[2019-10-31 06:54] LABS: BASO# 0.01 X1000 (0.0-0.2); BASO% 0.1 % (0.0-0.8); EOS# 0.05 X1000 (0.0-0.7); EOS% 0.4 % (0.0-10.0); HEMATOCRIT 27.8 % (42.0-52.0); HEMOGLOBIN 9.3 g/dL (14.0-18.0); IMM GRAN# 0.03 X1000 (0.0-0.04); IMM GRAN% 0.2 % (0.0-0.5); LYMPH# 0.69 X1000 (1.2-3.4); LYMPH% 5.6 % (20.5-51.1); MCH 30.2 PG (27-31); MCHC 33.5 g/dL (33-37); MCV 90.3 FL (81-99); MONO# 0.47 X1000 (0.11-0.59); MONO% 3.8 % (1.7-9.3); MPV 8.2 FL (7.4-10.4); NEUT# 11.04 X1000 (1.4-6.5); NEUT% 89.9 % (42.2-75.2); PLT 446 X1000 (130-400); RBC 3.08 XMIL (4.7-6.1); RDW 12.9 % (11.5-14.5); WBC 12.29 X1000 (4.8-10.8)
[2019-10-31 07:30] LABS: AGAP 12; BUN 9 mg/dL (8-22); CALCIUM 8.1 mg/dL (8.8-10.2); CHLORIDE 88 mmol/L (98-107); COSMO 252; CREATININE 0.7 mg/dL (0.7-1.2); ESTIMATED GFR > 60; GLUCOSE 123 mg/dL (70-104); SODIUM 125 mmol/L (136-145); TCO2 25 mmol/L (25-35)
--- NOTE | 2019-10-31 14:20 | PROGRESS NOTE ---
DATE: 10/31/2019 SUBJECTIVE: Today Mr. Guillaume refers to be doing quite better than yesterday. He thinks the swelling in the lower extremities is getting slightly better. OBJECTIVE: Vital signs: Blood pressure is 114/54, pulse of 81, respirations 16, temperature 98.2 degrees. General: Mr. Guillaume is a 64-year-old gentleman. He was in bed, no distress. HEENT: Mucosa is pink and moist. Anicteric. Acyanotic. Neck: Supple. Chest: Good air entry bilateral. Did not hear any crepitations, no rhonchi. Cardiovascular: Regular rate and rhythm. Gastrointestinal: Abdomen is soft. Extremities: The right lower extremity does have changes of chronic crackly skin. Skin: The left lower extremity is uniformly erythematous. The swelling is showing some wrinkling. Central nervous system: Patient is awake, alert, and oriented. LABORATORY DATA: WBC is down to 12.26, hemoglobin 9.3, platelet count 446,000. Chemistry is also reviewed. Sodium is 135, potassium is 3.0, chloride is 88, bicarb is 25. MEDICATIONS: Have all been reviewed. ASSESSMENT: 1. Bilateral lower extremity cellulitis with generalized systemic inflammatory response. We will continue with IV antimicrobial therapy and wait on the culture results. 2. Hypertension, stable. 3. Tinea pedis. The patient has been started on fluconazole. I think that is what is facilitating the entrance into the subcutaneous tissue, the skin pathogens. 4. Chronic pain syndrome. Aware. cc: Jean Larios MD
[2019-10-31] MEDS: DIFLUCAN PO SCH (14:34)
[2019-11-01] MEDS: DILAUDID IV PRN ×7 (02:08→21:56)
[2019-11-01] MEDS: ZOSYN 3.375 GM in NS 50 ML IV SCH ×2 (05:10→11:39)
[2019-11-01] MEDS: PRILOSEC PO SCH (06:29)
[2019-11-01] MEDS: VANCOMYCIN 1,250 MG in NS 250 ML IV SCH (06:29)
[2019-11-01] MEDS ORDERED: PNEUMOVAX 23 IM ONE (07:45)
[2019-11-01] MEDS: DIFLUCAN PO SCH (08:12)
[2019-11-01] MEDS ORDERED: KEFZOL 1 GM/D5W 1 GM/50 ML IVPB IV SCH (13:30)
--- NOTE | 2019-11-01 14:34 | PROGRESS NOTE ---
DATE: 11/01/2019 SUBJECTIVE: This morning Mr. Guillaume refers to be doing well. Denies any new complaints. Still has a lot of pains in the lower extremities. OBJECTIVE: Vital signs: Blood pressure is 155/80, pulse of 95, respirations 20, temperature is 98.2 degrees. General: Mr. Guillaume is a 64-year-old gentleman. He is in bed in no distress. HEENT: Mucosa is pink and moist. Anicteric. Acyanotic. Neck: Supple. Chest: Good air entry bilaterally. There are no crepitations no rhonchi. Cardiovascular: Regular rate and rhythm. There are no murmurs. No rubs. No gallops. Abdomen: Soft, nontender. Bowel sounds present. Extremities: Right lower leg has chronic craquel skin changes. The left lower extremity is uniformly erythematous but the swelling and the redness are improving. There was a mild swelling on the right big finger as well. LABORATORY DATA: None for this morning. The right thumb has shown strep pyogenes. ASSESSMENT: 1. Bilateral lower extremity cellulitis with systemic inflammatory response. The patient has significantly improved. We will continue with the IV vancomycin. We will switch the Zosyn to Ancef. 2. Hypertension. We will continue with his home medications. 3. Tinea pedis. Patient has been started on fluconazole. 4. Chronic pain syndrome. 5. Right big finger mild cellulitis with small subcutaneous abscess. Cultures positive for strep pyogenes. Looking better on the antibiotics. PLAN: Mr. Medley is doing well. He still continues to have some pain. The lower extremities look slightly better. He continues to have chronic craquel skin changes on the right but it does not look as oozing as days before. We will get ID to re-evaluate him since they were involved in the last admission. cc: Jean Larios MD
[2019-11-01] MEDS ORDERED: KEFZOL 2 GM/D5W 2 GM/50 ML IVPB IV SCH (14:45)
--- NOTE | 2019-11-01 15:25 | INFECTIOUS DISEASE PROGRESS NO ---
DATE: 11/01/2019 PRESENT ILLNESS: The patient has a return of his severe cellulitis. It involved his legs and this time it also involves both legs as well as his hands. A culture taken from the patient's right thumb during this admission is growing group A Strep. Therefore, the patient is having a Streptococcal cellulitis of the legs and hands. MEDICATIONS: The patient was on cefazolin and vancomycin. The patient was on cefazolin and vancomycin. PHYSICAL EXAMINATION: Vital Signs: Temperature is 98.2 degrees, pulse 95, respirations 20, blood pressure 155/80. Generally: This is an ill-appearing middle-aged male. He is in no acute distress. Head/eyes/ears/nose/throat: He can hear my spoken words and see near objects. There are no white patches in his mouth. Neck: No meningismus. Lungs: Clear to auscultation. Cardiovascular: Regular heart rate. Abdomen: Soft and nontender. Integument: The patient's left leg is erythematous and swollen. The patient's right leg is less swollen and it is beginning to have scaling of the skin. The patient's hands have small erythematous areas, some of which are purulent and the culture from the patient's right thumb grew a Streptococcus. Patient's hands have a small erythematous areas, some of which are purulent and the culture from the patient's right thumb grew group a Streptococcus. LAB AND X-RAY STUDIES: The patient's CBC shows a white count of 12,290, hemoglobin 9.3, and platelet count 446,000. Creatinine is 0.7. GFR is greater than 60. Liver function studies are normal. Urinalysis showed no white cells or bacteria. ASSESSMENT AND PLAN: The patient has group A Streptococcal cellulitis of the legs and hands. I have discontinued vancomycin. I have increased the dose of Ancef to 2 grams intravenously every eight hours. I am going to go ahead and get some immunoglobulin levels. Also, I totally agree with consulting the wound care nurse. When the patient is better, when I will follow the patient in the office and when things look like they are cleared up well, I will most likely switch the patient to an oral antibiotic. The patient tells me that she was doing pretty well until she stopped the oral antibiotic she was on last time which were Keflex and Septra. I think in this patient's case I will just have to keep going with Keflex 500 mg every 12 hours on a chronic basis. COMORBIDITIES: The patient has severe degenerative joint disease. He does smoke cigarettes and drink alcohol beverages. cc: Jethro Bettencourt MD
[2019-11-01] MEDS: KEFZOL 2 GM/D5W 2 GM/50 ML IVPB IV SCH (17:57)
[2019-11-02] MEDS: DILAUDID IV PRN ×7 (00:52→23:58)
[2019-11-02] MEDS: KEFZOL 2 GM/D5W 2 GM/50 ML IVPB IV SCH ×4 (00:59→19:58)
[2019-11-02] MEDS: PRILOSEC PO SCH (06:13)
[2019-11-02 07:02] LABS: HEMATOCRIT 30.2 % (42.0-52.0); MCHC 33.1 g/dL (33-37); MCV 93.5 FL (81-99); MPV 8.6 FL (7.4-10.4); RBC 3.23 XMIL (4.7-6.1); RDW 13.5 % (11.5-14.5); WBC 7.84 X1000 (4.8-10.8)
[2019-11-02 07:33] LABS: AGAP 12; ALBUMIN 2.7 g/dL (3.5-5.0); BUN 4 mg/dL (8-22); CALCIUM 8.6 mg/dL (8.8-10.2); CHLORIDE 95 mmol/L (98-107); COSMO 263; CREATININE 0.6 mg/dL (0.7-1.2); ESTIMATED GFR > 60; GLUCOSE 100 mg/dL (70-104); PHOSPHORUS 3.2 mg/dL (2.7-4.5); POTASSIUM 3.8 mmol/L (3.5-5.1); SODIUM 133 mmol/L (136-145); TCO2 26 mmol/L (25-35)
[2019-11-02] MEDS: DIFLUCAN PO SCH (09:32)
[2019-11-02] MEDS: HYDROPHOR OINTMENT TOP SCH ×2 (14:41→20:10)
--- NOTE | 2019-11-02 14:45 | INFECTIOUS DISEASE PROGRESS NO ---
DATE: 11/02/2019 PRESENT ILLNESS: The patient has a severe group A streptococcal cellulitis of his legs and to a lesser extent in his hands. MEDICATIONS: The patient is on cefazolin. PHYSICAL EXAMINATION: Vital Signs: Temperature is 97.4 degrees, pulse 89, respirations 16, blood pressure 131/60. General: This is a somewhat ill-appearing, middle-aged male. He is in no acute distress. Head, Eyes, Ears, Nose, and Throat: He can hear my spoken words and see near objects. He does not have any white patches on his tongue. Neck: No pain with movement. Lungs: Clear to auscultation. Cardiovascular: Heart rate is regular. Abdomen: Soft and nontender. Extremities: Both legs are less erythematous and swollen, and a lot of the scaling skin has been removed from the leg. The erythema also is improving on the patient's hands. Neurologic: The patient is alert. He can move his extremities. He can ambulate. There is no tremor. LAB AND X-RAY: There is no new radiographic study. IgG and IgA are normal. CBC shows a white count of 7840, hemoglobin 10, platelet count 482,000. Creatinine is 0.6. GFR is greater than 60. ASSESSMENT AND PLAN: The patient has group A streptococcal cellulitis of the legs and hands. My plan is to continue Ancef until there is more improvement and then switch the patient to Keflex 500 mg by mouth every 8 hours until all the erythema has disappeared. Then I will put the patient on Keflex 500 mg by mouth every 12 hours on an indefinite basis. COMORBIDITIES: The patient has severe degenerative joint disease. He does smoke cigarettes and he does drink alcoholic beverages. cc: Jethro Bettencourt MD
--- NOTE | 2019-11-02 16:46 | PROGRESS NOTE ---
DATE: 11/02/2019 SUBJECTIVE: Today Mr. Guillaume refers to be doing a lot better. He thinks the lower extremity swelling is better controlled. Patient has been evaluated by the wound care nurse as well. OBJECTIVE: Vital signs: Blood pressure is 142/78, pulse of 90, respiration is 20, temperature 97.5 degrees. General: Mr. Guillaume is a 64-year-old gentleman. He is in bed, no distress. HEENT: Mucosa is pink and moist. Anicteric. Acyanotic. Neck: Supple. Chest: Clear to auscultation. No crepitations. No rhonchi. Cardiovascular: Regular rate and rhythm. GI: Abdomen is soft, nontender. Bowel sounds present. Extremities: There is some swelling in both lower extremities. The left is uniformly swollen. Redness is getting better. The right has a chronic crackly skin changes which most of the dry ones are peeling off. LABORATORY DATA: WBC has normalized. Chemistry: Sodium is 133, rest of chemistry is unremarkable. Blood cultures have come back 48 hours negative. ASSESSMENT: 1. Bilateral lower extremity cellulitis, presumably streptococcal in etiology, associated with systemic inflammatory response. The patient is currently on IV Ancef. 2. Hypertension, controlled. 3. Tinea pedis. Patient is on fluconazole. 4. Chronic pain syndrome. 5. Right big finger with mild cellulitis and small abscess which has spontaneously drained. Culture is positive for Streptococcus pyogenes. PLAN: So in general, I think Mr. Guillaume is doing well. His white cell count has normalized. There is a plan to get him discharged on oral Keflex. Wound Care has evaluated him. Case Management and Social Work have also evaluated him. Apparently Mr. Guillaume does not have any help at home so we trying to get him to a rehab so he can be assured that he is taking his medication and he is getting adequate wound care to help with his progress. cc: Jean Larios MD
[2019-11-03] MEDS: KEFZOL 2 GM/D5W 2 GM/50 ML IVPB IV SCH ×3 (02:19→18:20)
[2019-11-03] MEDS: DILAUDID IV PRN ×6 (05:27→21:44)
[2019-11-03] MEDS: PRILOSEC PO SCH ×2 (05:28→07:33)
[2019-11-03] MEDS: DIFLUCAN PO SCH (10:21)
[2019-11-03] MEDS: HYDROPHOR OINTMENT TOP SCH ×2 (10:22→20:16)
--- NOTE | 2019-11-03 18:45 | PROGRESS NOTE ---
DATE: 11/03/2019 SUBJECTIVE: Today Mr. Guillaume refers to be doing well. No new complaints. The lower extremity is looking a lot better. OBJECTIVELY: Vital: Blood pressure is 156/83, pulse of 92, respirations 18, temperature 97.8 degrees. General: Mr. Guillaume is a 64-year-old gentleman. He is in bed, no distress. HEENT: Mucosa is pink and moist. Anicteric. Acyanotic. Neck: Supple. Chest: Clear to auscultation. No crepitations. No rhonchi. Cardiovascular: Regular rate and rhythm. GI: Abdomen is soft, nontender. Bowel sounds present. Extremities: Has bilateral minimal swelling. Erythematous changes have significantly improved. The right chronic craquel skin changes have completely peeled off. ABRASIVE GRINDER: Patient is awake, alert, and oriented. LABORATORIES: No lab work for this morning. ASSESSMENT: 1. Bilateral lower extremity streptococcal cellulitis. The patient has been switched to IV Ancef. The plan is to change to p.o. whenever he is medically stable. 2. Hypertension, controlled. 3. Tinea pedis, significantly improved in between the toes. The patient is on fluconazole; today is day 3. 4. Chronic pain syndrome. 5. Right big finger with streptococcal small abscess and cellulitis, improved. 6. Tobacco use and abuse. Patient has been counseled. 7. Alcohol use and abuse. Patient has been counseled. Disposition. It looks like he has been accepted to [facility]. Will be waiting on final recommendations from [place] to be able to get him there. We are going to discontinue the Row[place] catheter today. cc: Jean Larios MD MTDD
--- NOTE | 2019-11-03 20:17 | INFECTIOUS DISEASE PROGRESS NO ---
DATE: 11/03/2019 PRESENT ILLNESS: The patient has group A streptococcal cellulitis of his legs and to a lesser extent his hands. He also has tinea pedis. MEDICATIONS: The patient is on cefazolin and fluconazole. PHYSICAL EXAMINATION: Vital Signs: Temperature is 97.8 degrees, pulse 92, respirations 16, blood pressure is 156/83. General: This is a somewhat ill-appearing middle-aged male. He is in no acute distress. Head/eyes/ears/nose/throat: He can hear my spoken words and see near objects. He does not have any white coating of his tongue. Neck: No pain with movement. Lungs: Clear to auscultation. Cardiovascular: Regular heart rate. Abdomen: Soft and nontender. Extremities: Both legs are less erythematous and swollen and all the scaling skin has been removed from the right leg. Neurologic: Patient is alert. He can move his extremities. He can ambulate but he is very weak. He does not have a tremor. LAB AND X-RAY: There is no new lab today except the immunoglobulin levels, IgA is 366 and IgG is 1278. These values are in the normal range. ASSESSMENT AND PLAN: For now I think we should continue with Ancef to treat the patient's streptococcal cellulitis of the legs and hands. I agree with Dr. Larios that eventually we will switch the patient over to Keflex 500 mg p.o. every 8 hours and when it looks like all the erythema has cleared I will put the patient on Keflex 500 mg p.o. every 12 hours on an indefinite basis to hopefully prevent recurrence of the cellulitis. COMORBIDITIES: Severe degenerative joint disease, cigarette smoking and alcohol consumption. cc: Jethro Bettencourt MD
[2019-11-04] MEDS: DILAUDID IV PRN ×5 (01:11→14:25)
[2019-11-04] MEDS: KEFZOL 2 GM/D5W 2 GM/50 ML IVPB IV SCH ×2 (01:20→09:39)
[2019-11-04] MEDS: PRILOSEC PO SCH (06:28)
[2019-11-04] MEDS: DIFLUCAN PO SCH (09:38)
[2019-11-04] MEDS: HYDROPHOR OINTMENT TOP SCH (09:39)
--- NOTE | 2019-11-04 14:36 | DISCHARGE SUMMARY ---
ADMISSION DATE: 10/30/2019 DISCHARGE DATE: 11/04/2019 DISPOSITION: [facility]. CONSULTATIONS DURING THIS ADMISSION: Infectious disease was consulted. Patient was seen by Dr. Bettencourt. INVASIVE PROCEDURES DONE DURING THIS ADMISSION: None. IMAGING STUDIES OF SIGNIFICANCE: A chest x-ray showed no pneumonia. ADMISSION DIAGNOSES: 1. Bilateral lower extremity cellulitis. 2. Leukocytosis. 3. Hyponatremia. 4. History of coronary artery disease. DIAGNOSES AT THE TIME OF DISCHARGE: 1. Bilateral lower extremity streptococcal cellulitis. 2. Hypertension, controlled. 3. Tinea pedis. 4. Chronic pain syndrome. 5. Right big finger streptococcal small abscess with cellulitis, resolved. 6. Tobacco use and abuse. 7. Alcohol use and abuse. DISCHARGE MEDICATIONS: 1. Amlodipine 10 mg p.o. daily. 2. Fluconazole 100 mg p.o. daily. 3. Omeprazole 40 mg p.o. daily. 4. [place] 7.5 p.o. q.6. 5. Xanax 1 mg p.o. b.i.d. p.r.n. 6. Antibiotic selection, dose, and route of administration to be decided by Dr. Bettencourt. PRESENTING COMPLAINT: Lower extremity pain. HISTORY OF PRESENTING COMPLAINT: Mr. Guillaume is a 64-year-old, gentleman who is known to have lower extremity cellulitis. He was admitted to the hospital on August 06 to August 18. At that time, it was also associated with right leg early abscess which I and D was done. Was sent home on oral antimicrobial therapy. Apparently, he never got to take his medication as instructed. Weeks later, the leg started to swell back, became more erythematous, and painful, so he was brought to the emergency department where he was evaluated. Was found to be in recurrent cellulitis and was admitted for further medical care. HOSPITAL COURSE: Mr. Guillaume was admitted to the medical floor. Was started on broad-spectrum IV antibiotics. Blood cultures came back 48 hours negative. There was a small abscess on the right thumb which was popped open and culture was taken from there, came back positive for Streptococcus pyogenes group A. The patient's lower extremity swelling continues to show improvement. ID was consulted. He was seen by Dr. Bettencourt. He was also followed up by wound care. Today, he refers to be doing a lot better. There are no new complaints. The swelling has continued to improve. We think he is now stable to be transferred to rehab to continue with his wound care, antibiotic therapy, and physical therapy. At the time of the dictation, infectious disease has not written up yet the antibiotics to be discharged on. He is currently in the hospital with cefazolin 2 g every 8 hours. All the discharge instructions have been discussed with Mr. Guillaume. Specifically, we did stress the need for alcohol and tobacco cessation. Discharge time 34 minutes. cc: MD Jethro Suarez MD [facility]
[2019-11-04 15:44] VITALS: BP 133/71
--- NOTE | 2019-11-05 06:50 | INFECTIOUS DISEASE PROGRESS NO ---
DATE: 11/04/2019 The patient has group A streptococcal cellulitis of the legs and, to a lesser extent, the hands. He is going over to [facility] for rehabilitation. I have written the following orders: Keflex 500 mg p.o. every 8 hours x2 weeks, followed by Keflex 500 mg p.o. every 12 hours x2 weeks. I have requested that the patient have an appointment in my office 4 weeks from now. At that time, most likely, his Keflex every 12 hours will be continued for an indefinite amount of time. Last time when he went home with cellulitis, his antibiotics were stopped and the cellulitis came back. Therefore, I am going to keep Keflex going and hopefully he will not have a recurrence of his cellulitis while he is on the Keflex. cc: Jethro Bettencourt MD
== END 2019-11-04 16:06 | DRG 603 ==
LOC: ED 13:46 → 4N 20:28
PROVIDERS: ATTEND Internal Medicine